=== PATIENT | male | born 1945 | race Caucasian/White ===

== ENCOUNTER 2017-07-30 10:29 | Inpatient (IN) | payer OTHER, MEDICARE ==
[2017-07-30] MEDS ORDERED: NITROGLYCERIN OINT 1 INCH/GM PACKET TOPICAL STA (10:49)
[2017-07-30] MEDS ORDERED: ASPIRIN 81 MG PO STA (10:49)
--- NOTE | 2017-07-30 10:53 | ED ---
General Adult HPI - General Chief complaint: Chest Pain Stated complaint: Chest pain Time Seen by Provider: 07/30/17 10:30 Source: patient, RN notes reviewed Mode of arrival: wheelchair Limitations: no limitations - History of Present Illness Initial comments: This is a 71-year-old male who presents emergency Department with a family history significant for cardiac disease his father at 50 from heart attack. Patient states since having chest pain. Patient states it started on on the left side but on Sunday was in the right lower chest area and radiates up to his neck on the right. Patient states that pain persists today. Patient states must be getting a little worse because he came to the emergency department today. Patient states he has no shortness of breath or difficulty breathing. Patient denied any diaphoretic episodes. Patient denies any nausea vomiting. Patient denies any abdominal pain. Patient denied any palpitations. Patient denies any lightheadedness dizziness or near syncopal episode. Patient denies any calf pain but he has noted some swelling in the legs over the last few months. Patient denies any recent fever chills or cough. Patient states sometimes he takes a deep breath it seems like it makes the pain worse but is not consistent - Related Data Home Medications Medication Instructions Recorded Confirmed Naproxen Sodium [Aleve] 220 mg PO DAILY PRN 07/30/17 07/30/17 Allergies Allergy/AdvReac Type Severity Reaction Status Date / Time No Known Allergies Allergy Verified 07/30/17 11:08 Review of Systems ROS Statement: Those systems with pertinent positive or pertinent negative responses have been documented in the HPI. ROS Other: All systems not noted in ROS Statement are negative. Past Medical History Past Medical History: No Reported History History of Any Multi-Drug Resistant Organisms: None Reported Past Surgical History: Hernia Repair Past Psychological History: No Psychological Hx Reported Smoking Status: Never smoker Past Alcohol Use History: None Reported Past Drug Use History: None Reported General Exam - General Exam Comments Initial Comments: GENERAL: Patient is well-developed and well-nourished. Patient is nontoxic and well- hydrated and is in mild distress. ENT: Neck is soft and supple. No significant lymphadenopathy is noted. Oropharynx is clear. Moist mucous membranes. Neck has full range of motion without eliciting any pain. EYES: The sclera were anicteric and conjunctiva were pink and moist. Extraocular movements were intact and pupils were equal round and reactive to light. Eyelids were unremarkable. PULMONARY: Unlabored respirations. Good breath sounds bilaterally. No audible rales rhonchi or wheezing was noted. CARDIOVASCULAR: There is a regular rate and rhythm without any murmurs gallops or rubs. ABDOMEN: Soft and nontender with normal bowel sounds. No palpable organomegaly was noted. There is no palpable pulsatile mass. SKIN: Skin is clear with no lesions or rashes and otherwise unremarkable. NEUROLOGIC: Patient is alert and oriented x3. Cranial nerves II through XII are grossly intact. Motor and sensory are also intact. Normal speech, volume and content. Symmetrical smile. MUSCULOSKELETAL: Normal extremities with adequate strength and full range of motion. 1+ edema bilaterally LYMPHATICS: No significant lymphadenopathy is noted PSYCHIATRIC: Normal psychiatric evaluation. Limitations: no limitations Course Vital Signs 07/30/17 07/30/17 07/30/17 10:31 10:59 11:50 Temperature 97.9 F Pulse Rate 95 91 Pulse Rate [ 93 Director Drug Safety ] Respiratory 18 20 Rate Blood Pressure 157/86 129/77 O2 Sat by Pulse 93 L 94 L Oximetry 07/30/17 13:00 Temperature Pulse Rate 85 Pulse Rate [ Director Drug Safety ] Respiratory 19 Rate Blood Pressure 129/80 O2 Sat by Pulse 94 L Oximetry Medical Decision Making - Medical Decision Making EKG shows a sinus rhythm at a rate of 92 bpm [place] interval is 170 QRS is 134 QT interval 390 QTC is 482. Patient's EKG shows no ST segment elevation there is no ST segment depression patient does have a right bundle branch block. Computed tomography scan shows a pulmonary embolism. I started the patient on heparin. I spoke with Dr. Bowman he agreed to admit the patient admitted the patient continued heparin on the floor. - Lab Data Result diagrams: 07/30/17 10:54 07/30/17 10:54 Lab Results 07/30/17 07/30/17 07/30/17 Range/Units 10:54 10:54 10:54 WBC 7.9 (3.8-10.6) k/uL RBC 4.98 (4.30-5.90) m/uL Hgb 15.0 (13.0-17.5) gm/dL Hct 43.9 (39.0-53.0) % MCV 88.1 (80.0-100.0) fL MCH 30.2 (25.0-35.0) pg MCHC 34.2 (31.0-37.0) g/dL RDW 13.1 (11.5-15.5) % Plt Count 166 (150-450) k/uL Neutrophils % 69 % Lymphocytes % 20 % Monocytes % 7 % Eosinophils % 2 % Basophils % 0 % Neutrophils # 5.5 (1.3-7.7) k/uL Lymphocytes # 1.6 (1.0-4.8) k/uL Monocytes # 0.6 (0-1.0) k/uL Eosinophils # 0.1 (0-0.7) k/uL Basophils # 0.0 (0-0.2) k/uL PT (9.0-12.0) sec INR (<1.2) APTT (22.0-30.0) sec D-Dimer (<0.60) mg/L FEU Sodium 140 (137-145) mmol/L Potassium 4.1 (3.5-5.1) mmol/L Chloride 102 (98-107) mmol/L Carbon Dioxide 26 (22-30) mmol/L Anion Gap 12 mmol/L BUN 14 (9-20) mg/dL Creatinine 0.83 (0.66-1.25) mg/dL Est GFR (CKD-EPI)AfAm >90 (>60 ml/min/1.73 sqM) Est GFR (CKD-EPI)NonAf 90 (>60 ml/min/1.73 sqM) Glucose 128 H (74-99) mg/dL Calcium 9.1 (8.4-10.2) mg/dL Magnesium 1.7 (1.6-2.3) mg/dL Total Bilirubin 0.8 (0.2-1.3) mg/dL AST 19 (17-59) U/L ALT 22 (21-72) U/L Alkaline Phosphatase 86 (38-126) U/L Total Creatine Kinase 42 L (55-170) U/L CK-MB (CK-2) 0.7 (0.0-2.4) ng/mL CK-MB (CK-2) Rel Index 1.7 Troponin I <0.012 (0.000-0.034) ng/mL NT-Pro-B Natriuret Pep pg/mL Total Protein 7.5 (6.3-8.2) g/dL Albumin 4.1 (3.5-5.0) g/dL 07/30/17 07/30/17 Range/Units 10:54 10:54 WBC (3.8-10.6) k/uL RBC (4.30-5.90) m/uL Hgb (13.0-17.5) gm/dL Hct (39.0-53.0) % MCV (80.0-100.0) fL MCH (25.0-35.0) pg MCHC (31.0-37.0) g/dL RDW (11.5-15.5) % Plt Count (150-450) k/uL Neutrophils % % Lymphocytes % % Monocytes % % Eosinophils % % Basophils % % Neutrophils # (1.3-7.7) k/uL Lymphocytes # (1.0-4.8) k/uL Monocytes # (0-1.0) k/uL Eosinophils # (0-0.7) k/uL Basophils # (0-0.2) k/uL PT 9.9 (9.0-12.0) sec INR 1.0 (<1.2) APTT 24.3 (22.0-30.0) sec D-Dimer 1.56 H (<0.60) mg/L FEU Sodium (137-145) mmol/L Potassium (3.5-5.1) mmol/L Chloride (98-107) mmol/L Carbon Dioxide (22-30) mmol/L Anion Gap mmol/L BUN (9-20) mg/dL Creatinine (0.66-1.25) mg/dL Est GFR (CKD-EPI)AfAm (>60 ml/min/1.73 sqM) Est GFR (CKD-EPI)NonAf (>60 ml/min/1.73 sqM) Glucose (74-99) mg/dL Calcium (8.4-10.2) mg/dL Magnesium (1.6-2.3) mg/dL Total Bilirubin (0.2-1.3) mg/dL AST (17-59) U/L ALT (21-72) U/L Alkaline Phosphatase (38-126) U/L Total Creatine Kinase (55-170) U/L CK-MB (CK-2) (0.0-2.4) ng/mL CK-MB (CK-2) Rel Index Troponin I (0.000-0.034) ng/mL NT-Pro-B Natriuret Pep 92 pg/mL Total Protein (6.3-8.2) g/dL Albumin (3.5-5.0) g/dL Critical Care Time Critical Care Time: Yes Total Critical Care Time: 35 Disposition Clinical Impression: Pulmonary embolism Disposition: ADMITTED IP TO THIS HOSP Referrals: [facility] [Primary Care Provider] - 1-2 days Time of Disposition: 14:12
[2017-07-30 11:08] LABS: Basophils % (A) 0 %; Eosinophils # (A) 0.1 k/uL (0-0.7); Eosinophils % (A) 2 %; HCT 43.9 % (39.0-53.0); Lymphocytes # (A) 1.6 k/uL (1.0-4.8); Lymphocytes % (A) 20 %; MCH 30.2 pg (25.0-35.0); MCHC 34.2 g/dL (31.0-37.0); MCV 88.1 fL (80.0-100.0); Mean Platelet Volume 6.9; Monocytes # (A) 0.6 k/uL (0-1.0); Monocytes % (A) 7 %; Neutrophils # (A) 5.5 k/uL (1.3-7.7); Neutrophils % (A) 69 %; Platelet Count 166 k/uL (150-450); RBC 4.98 m/uL (4.30-5.90); RDW 13.1 % (11.5-15.5); WBC 7.9 k/uL (3.8-10.6)
[2017-07-30 11:21] LABS: ALT 22 U/L (21-72); AST 19 U/L (17-59); Albumin 4.1 g/dL (3.5-5.0); Alkaline Phosphatase 86 U/L (38-126); Anion Gap 12 mmol/L; Blood Urea Nitrogen 14 mg/dL (9-20); Calcium 9.1 mg/dL (8.4-10.2); Carbon Dioxide 26 mmol/L (22-30); Chloride 102 mmol/L (98-107); Glucose 128 mg/dL (74-99); Magnesium 1.7 mg/dL (1.6-2.3); Potassium 4.1 mmol/L (3.5-5.1); Sodium 140 mmol/L (137-145); Total Bilirubin 0.8 mg/dL (0.2-1.3); Total Protein 7.5 g/dL (6.3-8.2)
--- NOTE | 2017-07-30 11:30 | XR ---
EXAMINATION TYPE: XR chest 2V DATE OF EXAM: 07/30/2017 COMPARISON: 10/10/2012 TECHNIQUE: PA and lateral views submitted. HISTORY: Chest pain FINDINGS: Bilateral pleural effusion and pleural thickening. Basilar consolidation. Heart size normal. No pneum othorax or overt failure. Hypertrophic and degenerative change of the spine. IMPRESSION: 1. Bilateral infiltrate and pleural effusion correlate clinically. 2. Chronic Pleural-based thickening appears stable.
[2017-07-30 11:32] LABS: Creatine Kinase 42 U/L (55-170)
[2017-07-30 11:45] LABS: Creatine Kinase MB 0.7 ng/mL (0.0-2.4); Troponin I <0.012 ng/mL (0.000-0.034)
[2017-07-30 11:55] LABS: D-Dimer 1.56 mg/L FEU (<0.60)
[2017-07-30 12:03] LABS: Prothrombin Time 9.9 sec (9.0-12.0)
[2017-07-30 12:05] LABS: Partial Thromboplastin Time 24.3 sec (22.0-30.0)
[2017-07-30] MEDS ORDERED: RX INFO: IV CONTRAST WAS GIVEN 1 EACH MISC MISCELLANE PRN (12:23)
[2017-07-30] MEDS ORDERED: HEPARIN SODIUM,PORCINE 10,000 UNIT/ML 1 ML VIAL IV ONE (13:51)
--- NOTE | 2017-07-30 13:59 | CT ---
EXAMINATION TYPE: CT chest angio for PE DATE OF EXAM: 07/30/2017 COMPARISON: NONE HISTORY: Chest pain CT DLP: 678.7 mGycm Automated exposure control for dose reduction was used. CONTRAST: CT Chest for pulmonary embolism performed with with IV Contrast, patient injected with 100 mL of Omni paque 350. FINDINGS: LUNGS: The lungs are remarkable for some basilar atelectatic changes, small pleural effusion present on the right, correlate to exclude pneumonia. Some possible scarring, inflammatory change present wit hin the right middle lobe. MEDIASTINUM: There is satisfactory enhancement of the pulmonary artery and its branches. There are fi lling defects present within segmental branches to the right lower lobe, right middle and left upper lobes compatible with pulmonary emboli. No pericardial effusion is seen. AORTA: No additional significant abnormality is seen. There are coronary artery calcifications prese nt. OTHER: Nonobstructive calculus present within the upper pole of the left kidney measures approximate ly 4 to 5 mm. There is a small hiatal hernia present. Cystic focus present in the exophytic location at the level of the upper pole left kidney laterally measures 8.6 cm and shows fluid attenuation. IMPRESSION: Pulmonary emboli. Additional findings above. Report relayed telephonically to the referring clinician at the time of performance of the exam. Additional findings above.
[2017-07-30] MEDS ORDERED: HEPARIN SOD,PORK IN 0.45% NACL 25,000 UNIT in 0.45% NACL 1 500ML.BAG IV SCH (14:00)
[2017-07-30] MEDS ORDERED: SODIUM CHLORIDE 0.9% 1,000 ML IV ONE (14:12)
[2017-07-30 14:16] VITALS: RESP 18
--- NOTE | 2017-07-30 15:50 | US ---
EXAMINATION TYPE: US venous doppler duplex LE BI DATE OF EXAM: 07/30/2017 3:16 PM COMPARISON: NONE CLINICAL HISTORY: Pain. PE's today, no pain or swelling in legs SIDE PERFORMED: Bilateral TECHNIQUE: The lower extremity deep venous system is examined utilizing real time linear array sonog jass with graded compression, doppler sonography and color-flow sonography. VESSELS IMAGED: External Iliac Vein (EIV) Common Femoral Vein Deep Femoral Vein Greater Saphenous Vein * Femoral Vein Popliteal Vein Small Saphenous Vein * Proximal Calf Veins (* superficial vessels) Grayscale, color doppler, spectral doppler imaging performed of the deep veins of the lower extremiti es. There is normal flow, compressibility, vascular waveforms. Right Leg: Appears negative for DVT Left Leg: Appears negative for DVT IMPRESSION: No sonographic evidence of deep venous thrombosis within the bilateral lower extremities .
[2017-07-30] MEDS ORDERED: HYDROcodone/APAP 7.5-325MG 1 EACH TAB PO PRN (17:15)
[2017-07-30] MEDS ORDERED: ACETAMINOPHEN TAB 325 MG TAB PO PRN (17:15)
[2017-07-30] MEDS ORDERED: traMADol 50 MG TAB PO PRN (17:15)
--- NOTE | 2017-07-30 17:21 | P.HPIM ---
History of Present Illness 71-year-old man came in with complaints of chest pain which started last mostly right-sided the chest pleuritic in nature patient was comparing multiple areas of chest pain. Chest pain is about 3-4/10 in severity nonradiating associated with cough sneezing and the deep breathing. Patient denied any fever chills. Patient is found to have pulmonary embolism in the right subsegmental branches. Bilateral lower limb Doppler is negative for DVT. Patient was also comparing of associated shortness of breath complaining of dry cough as well. Denied any recent surgery recent travel history of blood clots in the family. Patient never had any age-appropriate cancer screening denied any recent weight loss. Patient is obese. Review of Systems REVIEW OF SYSTEMS: CONSTITUTIONAL: No fever, no malaise, no fatigue. HEENT: No recent visual problems or hearing problems. Denied any sore throat. CARDIOVASCULAR: No orthopnea, PND, no palpitations, no syncope. PULMONARY: As mentioned in HPI GASTROINTESTINAL: No diarrhea, no nausea, no vomiting, no abdominal pain. Normoactive bowel sounds. NEUROLOGICAL: No headaches, no weakness, no numbness. HEMATOLOGICAL: Denies any bleeding or petechiae. GENITOURINARY: Denies any burning micturition, frequency, or urgency. MUSCULOSKELETAL/RHEUMATOLOGICAL: Denies any joint pain, swelling, or any muscle pain. ENDOCRINE: Denies any polyuria or polydipsia. The rest of the 14-point review of systems is negative. Past Medical History Past Medical History: No Reported History History of Any Multi-Drug Resistant Organisms: None Reported Past Surgical History: Hernia Repair Past Psychological History: No Psychological Hx Reported Smoking Status: Never smoker Past Alcohol Use History: None Reported Past Drug Use History: None Reported Medications and Allergies Home Medications Medication Instructions Recorded Confirmed Type Naproxen Sodium [Aleve] 220 mg PO DAILY PRN 07/30/17 07/30/17 History Allergies Allergy/AdvReac Type Severity Reaction Status Date / Time No Known Allergies Allergy Verified 07/30/17 11:08 Physical Exam Vitals: Vital Signs Temp Pulse Pulse Resp BP Pulse Ox 07/30/17 16:08 98.3 F 87 18 122/82 96 07/30/17 14:15 90 18 119/76 95 07/30/17 13:00 85 19 129/80 94 L 07/30/17 11:50 91 20 129/77 94 L 07/30/17 10:59 93 07/30/17 10:31 97.9 F 95 18 157/86 93 L Intake and Output 07/30/17 07/30/17 07/30/17 06:59 14:59 22:59 Intake Total 200 Balance 200 Intake: Amount of Fluid Infused ( 200 ml) Other: Weight 136.078 kg Results CBC & Chem 7: 07/30/17 10:54 07/30/17 10:54 Labs: Abnormal Lab Results - Last 24 Hours (Table) 07/30/17 07/30/17 07/30/17 Range/Units 10:54 10:54 10:54 D-Dimer 1.56 H (<0.60) mg/L FEU Glucose 128 H (74-99) mg/dL Total Creatine Kinase 42 L (55-170) U/L Assessment and Plan Plan: -Chest pain: Related to pulmonary embolism. Patient's vitals are stable at this time patient will be switched to oral anticoagulation. Heparin will be discontinued patient appears to have unprecipitated DVT. Many lifelong anticoagulation. Age appropriate cancer screening was advised to the patient. -Obesity: Counseling was provided patient will benefit from sleep study. -Bilateral pleural effusions: Secondary to pulmonary embolism my suspicion is low for pneumonia.
[2017-07-30 17:25] VITALS: BMI 37.5
[2017-07-30] MEDS: APIXABAN 5 MG TAB PO SCH (18:23)
[2017-07-31] MEDS: APIXABAN 5 MG TAB PO SCH (07:58)
[2017-07-31 12:13] VITALS: BP 183/86; PULSE 89; TEMP 98.8
--- NOTE | 2017-07-31 13:36 | P.DS ---
Providers Date of admission: 07/30/17 14:12 Attending physician: Sinai Bowman Primary care physician: [facility] Course: 71-year-old man came in with complaints of chest pain which started last mostly right-sided the chest pleuritic in nature patient was comparing multiple areas of chest pain. Chest pain is about 3-4/10 in severity nonradiating associated with cough sneezing and the deep breathing. Patient denied any fever chills. Patient is found to have pulmonary embolism in the right subsegmental branches. Bilateral lower limb Doppler is negative for DVT. Patient was also comparing of associated shortness of breath complaining of dry cough as well. Denied any recent surgery recent travel history of blood clots in the family. Patient never had any age-appropriate cancer screening denied any recent weight loss. Patient is obese. 07/31/2017 Patient is clinically doing well this time clinically doing well vitals are stable patient will be discharged on Apaxiban if approved PHYSICAL EXAMINATION: GENERAL: The patient is alert and oriented x3, not in any acute distress. Well developed, well nourished. HEENT: Pupils are round and equally reacting to light. EOMI. No scleral icterus. No conjunctival pallor. Normocephalic, atraumatic. No pharyngeal erythema. No thyromegaly. CARDIOVASCULAR: S1 and S2 present. No murmurs, rubs, or gallops. PULMONARY: Chest is clear to auscultation, no wheezing or crackles. ABDOMEN: Soft, nontender, nondistended, normoactive bowel sounds. No palpable organomegaly. MUSCULOSKELETAL: No joint swelling or deformity. EXTREMITIES: No cyanosis, clubbing, or pedal edema. NEUROLOGICAL: Gross neurological examination did not reveal any focal deficits. SKIN: No rashes. Assessment and Plan Plan: -Chest pain: Related to pulmonary embolism. -Obesity: Counseling was provided patient will benefit from sleep study. -Bilateral pleural effusions: Secondary to pulmonary embolism my suspicion is low for pneumonia. Plan - Discharge Summary Discharge Rx Participant: No New Discharge Prescriptions: New Apixaban [Eliquis] See Taper PO BID #30 tab No Action Naproxen Sodium [Aleve] 220 mg PO DAILY PRN PRN Reason: Pain Discharge Medication List Naproxen Sodium [Aleve] 220 mg PO DAILY PRN 07/30/17 [History] Apixaban [Eliquis] See Taper PO BID #30 tab 07/31/17 [Rx] Follow up Appointment(s)/Referral(s): [facility],Clinic [Primary Care Provider] - 08/09/17 ([phone] Office will call with appointment time.) Patient Instructions/Handouts: Pulmonary Embolism (DC), Safe Use of Anticoagulants (DC) Activity/Diet/Wound Care/Special Instructions: Pt has first 30 days of Eliquis filled in [facility] pharmacy, prescription faxed to [facility] for follow up coverage. Discharge Disposition: HOME SELF-CARE
[2017-08-06] MEDS ORDERED: APIXABAN 5 MG TAB PO SCH (21:00)
== END 2017-07-31 15:46 | disposition home or self-care (01) | DRG 176 ==
LOC: EC 10:29 → 6SEL 14:12
PROVIDERS: ADMIT Internal Medicine; ATTEND Internal Medicine
DX: I26.99 Other pulmonary embolism without acute cor pulmonale (principal); J90 Pleural effusion, not elsewhere classified; E66.9 Obesity, unspecified; Z68.36 Body mass index [BMI] 36.0-36.9, adult; Z71.3 Dietary counseling and surveillance; Z82.49 Family history of ischemic heart disease and other diseases of the circulatory system
CPT/HCPCS: 36415; 71046; 71275; 80053; 82550; 82553; 83735; 83880; 84484; 85025; 85379; 85610; 85730; 93005; 93970; 96365; 96366; 96376; 99291

== ENCOUNTER 2020-12-30 13:12 | Inpatient (IN) | payer OTHER, MEDICARE ==
[2020-12-30] MEDS ORDERED: SODIUM CHLORIDE 0.9% 1,000 ML IV STA (15:13)
[2020-12-30] MEDS ORDERED: KETOROLAC 15 MG/ML 1 ML VIAL IVP STA (15:13)
[2020-12-30 15:24] LABS: ALT 13 U/L (4-49); AST 21 U/L (17-59); African American GFR (CKD) >90 (>60 ml/min/1.73 sqM); Albumin 3.9 g/dL (3.5-5.0); Alkaline Phosphatase 65 U/L (38-126); Anion Gap 9 mmol/L; Blood Urea Nitrogen 13 mg/dL (9-20); Carbon Dioxide 24 mmol/L (22-30); Chloride 103 mmol/L (98-107); Glucose 133 mg/dL (74-99); Non-African American GFR(CKD) 88 (>60 ml/min/1.73 sqM); Partial Thromboplastin Time 23.8 sec (22.0-30.0); Potassium 4.2 mmol/L (3.5-5.1); Prothrombin Time 10.4 sec (9.0-12.0); Sodium 136 mmol/L (137-145); Total Bilirubin 0.7 mg/dL (0.2-1.3); Total Protein 7.1 g/dL (6.3-8.2)
[2020-12-30 15:29] LABS: Appearance,Urine Cloudy (Clear); Bacteria,Urine Few /hpf; Bilirubin,Urine Negative (Negative); Blood,Urine Trace (Negative); Color,Urine Yellow; Glucose,Urine (UA) Trace (Negative); Ketones,Urine Negative (Negative); Leukocyte Esterase,Urine Large (Negative); Mucus,Urine Moderate /hpf; Nitrite,Urine Positive (Negative); PH, Urine 5.5 (5.0-8.0); Protein,Urine Trace (Negative); RBC,Urine 13 /hpf (0-5); Specific Gravity,Urine 1.019 (1.001-1.035); Squamous Epithelial Cell,Urine <1 /hpf (0-4); Urobilinogen,Urine <2.0 mg/dL (<2.0); WBC,Urine >182 /hpf (0-5)
[2020-12-30 15:39] LABS: Basophils % (A) 0 %; Eosinophils # (A) 0.1 k/uL (0-0.7); Eosinophils % (A) 1 %; HCT 41.6 % (39.0-53.0); HGB 14.2 gm/dL (13.0-17.5); Lymphocytes # (A) 1.2 k/uL (1.0-4.8); Lymphocytes % (A) 16 %; MCH 32.3 pg (25.0-35.0); MCHC 34.1 g/dL (31.0-37.0); MCV 94.8 fL (80.0-100.0); Mean Platelet Volume 6.8; Monocytes # (A) 0.4 k/uL (0-1.0); Monocytes % (A) 6 %; Neutrophils # (A) 5.7 k/uL (1.3-7.7); Neutrophils % (A) 75 %; Platelet Count 172 k/uL (150-450); RBC 4.39 m/uL (4.30-5.90); WBC 7.5 k/uL (3.8-10.6)
--- NOTE | 2020-12-30 15:50 | XR ---
EXAMINATION TYPE: XR chest 2V DATE OF EXAM: 12/30/2020 COMPARISON: 07/30/2017 HISTORY: Shortness of breath TECHNIQUE: Frontal and lateral views of the chest are obtained. FINDINGS: Scattered senescent parenchymal changes noted. Hyperinflation compatible with COPD. No evidence for infiltrate. No evidence for atelectasis. Heart size is stable. Mediastinal structures are stable and grossly unremarkable. No evidence for hilar prominence. Degenerative changes dorsal spine. IMPRESSION: 1. No evidence for acute pulmonary disease.
--- NOTE | 2020-12-30 16:01 | ED ---
General Adult HPI - General Chief complaint: Chest Pain Stated complaint: Chest pain Time Seen by Provider: 12/30/20 15:03 Source: patient Mode of arrival: wheelchair Limitations: no limitations - History of Present Illness Initial comments: Patient is a 75-year-old male, history of diabetes, presenting to the emergency Department with complaints of left sided flank pain that started yesterday while he was watching TV. He states the pain has been pretty consistent although it varies in intensity. Currently he rates it a 6/10. He states it does come around to towards the front of his left abdomen. He states this morning he felt like it was coming up into his chest slightly. The pain does increase with movement. Right now, he denies any chest pain, no shortness of breath, he denies any abdominal pain, no nausea or vomiting. He denies any dysuria. He states he did go to the [place] doctor this morning, they did a a few x-rays and also did his urine, he was started on Flomax, tramadol, Bactrim for a possible kidney stone and UTI. He did take one dose of each of these medications this morning prior to arrival. He states the pain has been continuous and he came in for further evaluation. He denies history of cardiac events. He does have a history of kidney stones in the past, this does feel slightly similar. He denies any fevers or chills. He has no further complaints. His vital signs are stable upon arrival. - Related Data Home Medications Medication Instructions Recorded Confirmed Aspirin EC [Ecotrin Low Dose] 81 mg PO DAILY 12/30/20 12/30/20 Cholecalciferol [Vitamin D3 (25 25 mcg PO DAILY 12/30/20 12/30/20 Mcg = 1000 Iu)] Sulfamethox-Tmp 800-160Mg [Bactrim 1 tab PO Q12HR 12/30/20 12/30/20 DS 800-160 mg] Tamsulosin [Flomax] 0.4 mg PO DAILY 12/30/20 12/30/20 amLODIPine [Norvasc] 5 mg PO HS 12/30/20 12/30/20 traMADol HCl [Ultram] 50 mg PO TID PRN 12/30/20 12/30/20 Allergies Allergy/AdvReac Type Severity Reaction Status Date / Time No Known Allergies Allergy Verified 12/30/20 16:28 Review of Systems ROS Statement: Those systems with pertinent positive or pertinent negative responses have been documented in the HPI. ROS Other: All systems not noted in ROS Statement are negative. Past Medical History Past Medical History: Diabetes Mellitus Additional Past Medical History / Comment(s): Bilat PE diagnosed 07/30/2017 History of Any Multi-Drug Resistant Organisms: None Reported Past Surgical History: Hernia Repair Past Anesthesia/Blood Transfusion Reactions: No Reported Reaction Past Psychological History: No Psychological Hx Reported Smoking Status: Never smoker Past Alcohol Use History: None Reported Past Drug Use History: None Reported - Past Family History Father Family Medical History: Coronary Artery Disease (CAD), Myocardial Infarction ([place]) Brother(s) History Unknown: Yes Family Medical History: Coronary Artery Disease (CAD), Myocardial Infarction ([place]) General Exam - General Exam Comments Initial Comments: GENERAL: Patient is well-developed and well-nourished. Patient is nontoxic and in mild distress. HEAD: Atraumatic, normocephalic. EYES: Pupils equal round and reactive to light, extraocular movements intact, sclera anicteric, conjunctiva are normal. Eyelids were unremarkable. ENT: TMs normal, nares patent, oropharynx clear without exudates. Moist mucous membranes. NECK: Normal range of motion, supple without lymphadenopathy or JVD. LUNGS: Unlabored respirations. Breath sounds clear to auscultation bilaterally and equal. No wheezes rales or rhonchi. HEART: Regular rate and rhythm without murmurs, rubs or gallops. ABDOMEN: Soft, nontender, normoactive bowel sounds. No guarding, no rebound. No masses appreciated. Mild left flank pain with percussion. : Deferred MUSCULOSKELETAL: Normal extremities with adequate strength and normal range of motion, no pitting or edema. No clubbing or cyanosis. NEUROLOGICAL: Patient is alert and oriented x 3. Motor and sensory are also intact. Cranial nerves II through XII grossly intact. Symmetrical smile. Normal speech, normal gait. PSYCH: Normal mood, normal affect. SKIN: Warm, Dry, normal turgor, no rashes or lesions noted. Limitations: no limitations Course Vital Signs 12/30/20 12/30/20 13:47 15:18 Temperature 99.2 F Pulse Rate 63 80 Respiratory 18 22 Rate Blood Pressure 116/78 148/86 O2 Sat by Pulse 94 L 95 Oximetry - Reevaluation(s) Reevaluation #1: 12/30/20 17:02 Urinalysis resulted at 1547, positive nitrates, UTI, urine cultures pending. Scars case with urology, antibiotics ordered at 1652. Patient will be admitted. EKG Findings - EKG Comments: EKG Findings:: Sinus rhythm with marked sinus arrhythmia, nonspecific intraventricular block, no signs of acute ST segment elevation. Ventricular rate 90, interval 172, QTC 400. Similar to previous on 07/30/2017. Medical Decision Making - Medical Decision Making Patient is a 75-year-old male presenting with left flank pain started yesterday. He does admit to some radiation towards left abdomen, this morning he thought it was radiating towards his left chest. Currently has no chest pain or shortness of breath. His vitals are stable. [place] doctor this morning who did a chest x-ray and abdominal x-ray, was concerned for possible kidney stone and UTI, started him on tramadol, Flomax, Bactrim, he took one tablet of each of these this morning. Patient's labs show a normal white count, stable kidney function, troponin is negative. Urine is positive for nitrates, many wbc's and clumps, bacteria, urine culture is pending. Patient has a 8.3 mm calculus in the left upper pole, he also has a large 2.7 cm urinary bladder calculus as well. I did discuss his case with urology, they did agree to consult on the patient. Patient will be admitted under Dr. Mathews with urology on consult. Patient will be started on 2 g of Rocephin and will be nothing by mouth after midnight. Patient is agreeable to this. Case discussed with Dr. Strickland. - Lab Data Result diagrams: 12/30/20 14:49 12/30/20 14:49 Lab Results 12/30/20 12/30/20 12/30/20 Range/Units 14:49 14:49 14:49 WBC 7.5 (3.8-10.6) k/uL RBC 4.39 (4.30-5.90) m/uL Hgb 14.2 (13.0-17.5) gm/dL Hct 41.6 (39.0-53.0) % MCV 94.8 (80.0-100.0) fL MCH 32.3 (25.0-35.0) pg MCHC 34.1 (31.0-37.0) g/dL RDW 14.0 (11.5-15.5) % Plt Count 172 (150-450) k/uL MPV 6.8 Neutrophils % 75 % Lymphocytes % 16 % Monocytes % 6 % Eosinophils % 1 % Basophils % 0 % Neutrophils # 5.7 (1.3-7.7) k/uL Lymphocytes # 1.2 (1.0-4.8) k/uL Monocytes # 0.4 (0-1.0) k/uL Eosinophils # 0.1 (0-0.7) k/uL Basophils # 0.0 (0-0.2) k/uL PT 10.4 (9.0-12.0) sec INR 1.0 (<1.2) APTT 23.8 (22.0-30.0) sec Sodium 136 L (137-145) mmol/L Potassium 4.2 (3.5-5.1) mmol/L Chloride 103 (98-107) mmol/L Carbon Dioxide 24 (22-30) mmol/L Anion Gap 9 mmol/L BUN 13 (9-20) mg/dL Creatinine 0.81 (0.66-1.25) mg/dL Est GFR (CKD-EPI)AfAm >90 (>60 ml/min/1.73 sqM) Est GFR (CKD-EPI)NonAf 88 (>60 ml/min/1.73 sqM) Glucose 133 H (74-99) mg/dL Calcium 9.0 (8.4-10.2) mg/dL Total Bilirubin 0.7 (0.2-1.3) mg/dL AST 21 (17-59) U/L ALT 13 (4-49) U/L Alkaline Phosphatase 65 (38-126) U/L Troponin I (0.000-0.034) ng/mL Total Protein 7.1 (6.3-8.2) g/dL Albumin 3.9 (3.5-5.0) g/dL Urine Color Urine Appearance (Clear) Urine pH (5.0-8.0) Ur Specific Sherrill (1.001-1.035) Urine Protein (Negative) Urine Glucose (UA) (Negative) Urine Ketones (Negative) Urine Blood (Negative) Urine Nitrite (Negative) Urine Bilirubin (Negative) Urine Urobilinogen (<2.0) mg/dL Ur Leukocyte Esterase (Negative) Urine RBC (0-5) /hpf Urine WBC (0-5) /hpf Urine WBC Clumps (None) /hpf Ur Squamous Epith Cells (0-4) /hpf Urine Bacteria (None) /hpf Urine Mucus (None) /hpf 12/30/20 12/30/20 Range/Units 14:49 15:17 WBC (3.8-10.6) k/uL RBC (4.30-5.90) m/uL Hgb (13.0-17.5) gm/dL Hct (39.0-53.0) % MCV (80.0-100.0) fL MCH (25.0-35.0) pg MCHC (31.0-37.0) g/dL RDW (11.5-15.5) % Plt Count (150-450) k/uL MPV Neutrophils % % Lymphocytes % % Monocytes % % Eosinophils % % Basophils % % Neutrophils # (1.3-7.7) k/uL Lymphocytes # (1.0-4.8) k/uL Monocytes # (0-1.0) k/uL Eosinophils # (0-0.7) k/uL Basophils # (0-0.2) k/uL PT (9.0-12.0) sec INR (<1.2) APTT (22.0-30.0) sec Sodium (137-145) mmol/L Potassium (3.5-5.1) mmol/L Chloride (98-107) mmol/L Carbon Dioxide (22-30) mmol/L Anion Gap mmol/L BUN (9-20) mg/dL Creatinine (0.66-1.25) mg/dL Est GFR (CKD-EPI)AfAm (>60 ml/min/1.73 sqM) Est GFR (CKD-EPI)NonAf (>60 ml/min/1.73 sqM) Glucose (74-99) mg/dL Calcium (8.4-10.2) mg/dL Total Bilirubin (0.2-1.3) mg/dL AST (17-59) U/L ALT (4-49) U/L Alkaline Phosphatase (38-126) U/L Troponin I <0.012 (0.000-0.034) ng/mL Total Protein (6.3-8.2) g/dL Albumin (3.5-5.0) g/dL Urine Color Yellow Urine Appearance Cloudy (Clear) Urine pH 5.5 (5.0-8.0) Ur Specific Sherrill 1.019 (1.001-1.035) Urine Protein Trace H (Negative) Urine Glucose (UA) Trace H (Negative) Urine Ketones Negative (Negative) Urine Blood Trace H (Negative) Urine Nitrite Positive (Negative) Urine Bilirubin Negative (Negative) Urine Urobilinogen <2.0 (<2.0) mg/dL Ur Leukocyte Esterase Large H (Negative) Urine RBC 13 H (0-5) /hpf Urine WBC >182 H (0-5) /hpf Urine WBC Clumps Few H (None) /hpf Ur Squamous Epith Cells <1 (0-4) /hpf Urine Bacteria Few H (None) /hpf Urine Mucus Moderate H (None) /hpf Disposition Clinical Impression: UTI (urinary tract infection), Left renal stone, Urinary bladder calculus Disposition: ADMITTED IP TO THIS HOSP Condition: Stable Referrals: [facility],Clinic [Primary Care Provider] - 1-2 days Decision Date: 12/30/20 Decision Time: 17:03
--- NOTE | 2020-12-30 16:07 | CT ---
EXAMINATION TYPE: CT abdomen pelvis wo con DATE OF EXAM: 12/30/2020 COMPARISON: None HISTORY: Left flank pain. CT DLP: 1456.4 mGycm Examination of the solid and hollow viscera is limited given the lack of contrast. FINDINGS: LUNG BASES: No evidence for nodule. No evidence for infiltrate. LIVER/GB: The gallbladder is unremarkable. No space-occupying hepatic lesion. PANCREAS: No pancreatic mass identified. No inflammatory process seen. SPLEEN: No evidence for splenomegaly. No intrasplenic lesions seen. ADRENALS: No adrenal nodules identified. No evidence for thickening. KIDNEYS: No evidence for renal mass. Nonobstructing calculus upper pole left kidney measuring approxi mately 8.3 millimeters. No hydronephrosis. 2.7 cm urinary bladder calculus identified. Urinary bladde r wall thickening may reflect chronic cystitis. BOWEL: Appendix has a normal appearance. No evidence of bowel obstruction. No inflammatory process. Lymph nodes: No evidence for adenopathy greater than 1 cm. Abdominal aorta: Atheromatous changes seen. No evidence for aneurysm. Genital organs: No significant abnormality. Other: Fat-containing umbilical hernia. IMPRESSION: 1. Nonobstructing calculus upper pole left kidney. 2. Large urinary bladder calculus with a urinary bladder wall thickening which may reflect a degree o f underlying cystitis.
[2020-12-30] MEDS ORDERED: ONDANSETRON 4 MG/2 ML VIAL IVP PRN (17:03)
[2020-12-30] MEDS ORDERED: ACETAMINOPHEN TAB 325 MG TAB PO PRN (17:03)
[2020-12-30] MEDS ORDERED: IBUPROFEN 400 MG TAB PO PRN (17:03)
[2020-12-30] MEDS ORDERED: NALOXONE 0.4 MG/ML 1 ML VIAL IV PRN (17:03)
[2020-12-30] MEDS ORDERED: KETOROLAC 15 MG/ML 1 ML VIAL IVP PRN (17:03)
[2020-12-30] MEDS ORDERED: MORPHINE SULFATE 4 MG/ML SYRINGE IV PRN (17:03)
[2020-12-30] MEDS: SODIUM CHLORIDE 0.9% 1,000 ML IV SCH (17:18)
[2020-12-30] MEDS ORDERED: traMADol 50 MG TAB PO PRN (20:00)
--- NOTE | 2020-12-30 21:02 | HP ---
HISTORY AND PHYSICAL DATE OF SERVICE: 12/30/2020. CHIEF COMPLAINT: Chest pain. HISTORY OF PRESENT ILLNESS: This 75-year-old gentleman with past medical history of diabetes, bilateral pulmonary embolism, being followed by Dr. Ratliff in the [facility] in the outpatient setting, was complaining of left-sided lower chest pain and flank pain since yesterday while watching TV. The pain was severe 6/10 in intensity. Subsequently, the patient also had pain in the anterior part of chest, which was some pressing type of pain. Otherwise, the patient is evaluated by NH and was noted to have kidney stones and UTI. The pain has been continuous and the patient came to [facility] and admitted for evaluation treatment. There is no history of fever, rigors, chills at this time. The evaluation showed normal CBC and sodium is 136. UA showed some evidence of UTI and the patient also had a chest x-ray which was reviewed personally, showed no evidence of any acute pathology. Abdominal and pelvis CAT scan was also done which showed nonobstructing calculus in the upper pole of the left kidney and large urinary bladder calculus also noted with some amount of underlying cystitis also. There is no history of fever, rigors, chills at this time. PAST MEDICAL HISTORY: Diabetes, bilateral pulmonary embolism. MEDICATIONS: Home medications are Ultram, Norvasc, Flomax, Bactrim, vitamin D3, Ecotrin, doses noted. ALLERGIES: None. FAMILY HISTORY: History of coronary artery disease, myocardial infarction in the family. SOCIAL HISTORY: No history of smoking. No history of alcohol. REVIEW OF SYSTEMS: ENT: No diminished vision. No diminished hearing. CARDIOVASCULAR: No angina or palpitations. RESPIRATION as mentioned earlier. GI: As mentioned earlier. as mentioned earlier. NERVOUS SYSTEM: No numbness or weakness. ALLERGY/IMMUNOLOGY: No asthma or hayfever. MUSCULOSKELETAL as mentioned earlier. HEMATOLOGY/ONCOLOGY: No history of anemia. ENDOCRINE as mentioned earlier. CONSTITUTIONAL: As mentioned earlier. DERMATOLOGY: Negative. RHEUMATOLOGY: Negative. PSYCHIATRIC: As mentioned earlier. PHYSICAL EXAMINATION: Alert and oriented times three. Pulse 63, blood pressure 116/78, respiration 18, temperature 99.2, pulse ox 94% on room air. HEENT: Conjunctivae normal. NECK: No JVD. CARDIOVASCULAR: S1, S2 muffled. RESPIRATORY SYSTEM: Breath sounds diminished at the bases. Scattered rhonchi. ABDOMEN: Soft, mild diffuse tenderness. The flank otherwise soft, obese, nontender. No mass palpable. LEGS: No edema, no swelling. NERVOUS SYSTEM: Higher functions as mentioned earlier. Moves all 4 limbs. No focal motor or sensory deficits. LYMPHATICS: No lymph nodes palpable in the neck, axillae or groin. SKIN: No ulcers, no rashes and no bleeding. JOINTS: No active deforming arthropathy. LAB STUDIES: CBC within normal limits. Sodium 136. ASSESSMENT: 1. Left flank and left chest pain possible acute pyelonephritis and urinary tract infection. 2. Left upper pole nephrolithiasis and bladder stones. 3. Hyponatremia mild. 4. History of diabetes type 2. 5. History of bilateral pulmonary embolism. RECOMMENDATIONS: This 75-year-old gentleman who presented with multiple complex medical issues, we will monitor the patient closely. Continue the current medications. Continue symptomatic treatment. We will initiate broad-spectrum IV antibiotics. Obtain cultures. Urology has been consulted. I would also recommend D-dimer and if it is elevated, CT angio of the chest also. Prognosis guarded because of multiple complex medical issues. Symptomatic treatment will be provided. Home medications will be continued. A copy of dictation is being forwarded to Dr. Ratliff who is the primary physician. MMODL / IJN: [id number] /
[2020-12-30] MEDS: amLODIPine 5 MG TAB PO SCH (22:48)
--- NOTE | 2020-12-30 23:56 | CT ---
EXAMINATION TYPE: CT chest angio for PE DATE OF EXAM: 12/30/2020 COMPARISON: 07/30/2017 HISTORY: Elevated d-dimer CT DLP: 701.6 mGycm Automated exposure control for dose reduction was used. CONTRAST: Performed with IV Contrast, patient injected with 100 mL of Isovue 370. There are 3-D post processed images. There is some mild infiltrate and atelectasis left lung base. There is small left pleural effusion. There are multiple filling defects in the right pulmonary artery extending into the right lower lobe and right upper lobe. There are also a few filling defects in the left lower lobe pulmonary artery. T here are small defects also in the left upper lobe pulmonary artery. There is no mediastinal adenopathy. Thoracic aorta is intact. There are no hilar masses. The bony thorax is intact. IMPRESSION: Multiple bilateral pulmonary emboli. Emboli are essentially all new compared to old exam. Old exam sh ows a few small emboli in the right lower lobe pulmonary artery. No evidence of right heart strain. Left lower lobe pneumonia and atelectasis and pleural fluid. This exam was discussed with Jyoti at 11:53 PM.
[2020-12-31] MEDS ORDERED: HEPARIN SODIUM 1,000 UN/ML (10ML VL) IV PRN (00:23)
[2020-12-31] MEDS ORDERED: HEPARIN SODIUM 1,000 UN/ML (10ML VL) IV ONE (00:23)
[2020-12-31] MEDS: HEPARIN SOD,PORK IN 0.45% NACL 25,000 UNIT in 0.45% NACL 1 250ML.BAG IV SCH ×2 (00:41→12:24)
[2020-12-31] MEDS: SODIUM CHLORIDE 0.9% 1,000 ML IV SCH ×3 (02:30→20:20)
[2020-12-31] MEDS: ASPIRIN 81 MG PO SCH (08:21)
[2020-12-31] MEDS: CHOLECALCIFEROL 25 MCG (1000 IU) TABLET PO SCH (08:22)
[2020-12-31] MEDS: TAMSULOSIN 0.4 MG CAP.ER.24H PO SCH (08:22)
[2020-12-31 08:54] LABS: Basophils % (A) 0 %; Eosinophils # (A) 0.1 k/uL (0-0.7); Eosinophils % (A) 1 %; HCT 39.9 % (39.0-53.0); HGB 13.5 gm/dL (13.0-17.5); Lymphocytes # (A) 1.2 k/uL (1.0-4.8); Lymphocytes % (A) 15 %; MCH 31.4 pg (25.0-35.0); MCHC 33.7 g/dL (31.0-37.0); Mean Platelet Volume 7.6; Monocytes # (A) 0.5 k/uL (0-1.0); Monocytes % (A) 6 %; Neutrophils # (A) 6.1 k/uL (1.3-7.7); Neutrophils % (A) 77 %; Platelet Count 164 k/uL (150-450); RBC 4.29 m/uL (4.30-5.90); RDW 13.1 % (11.5-15.5); WBC 7.9 k/uL (3.8-10.6)
[2020-12-31 09:01] LABS: African American GFR (CKD) 76.8 (60.0-200.0); Albumin 3.5 g/dL (3.80-4.90); Albumin/Globulin Ratio 1.35 (1.60-3.17); Anion Gap 7.8 mmol/L (4.00-12.00); BUN/Creat Ratio 12.73 Ratio (12.00-20.00); Calcium 8.3 mg/dL (8.7-10.3); Carbon Dioxide 27.2 mmol/L (21.6-31.8); Globulin 2.6 g/dL (1.6-3.3); Non-African American GFR(CKD) 66.2 (60.0-200.0); Potassium 3.8 mmol/L (3.5-5.5); Total Bilirubin 0.6 mg/dL (0.3-1.2); Total Protein 6.1 g/dL (6.2-8.2)
[2020-12-31 09:13] LABS: INR 1.1 (<1.2); Prothrombin Time 11.3 sec (9.0-12.0)
[2020-12-31 09:21] LABS: Partial Thromboplastin Time 113.5 sec (22.0-30.0)
--- NOTE | 2020-12-31 11:02 | P.CRDCN ---
History of Present Illness History of present illness: HISTORY OF PRESENTING ILLNESS This is a pleasant 75-year-old male past medical history significant for pulmonary embolism and hypertension. He follows in the office with Dr. Stokes. We have been asked to see in consultation for pulmonary embolism. Flank pain and was diagnosed with an infected renal stone. Incidentally he is also complaining of some discomfort in his chest when he takes a deep breath prompting a d-dimer to be ordered which came to be elevated. His CTA of the chest revealed multiple bilateral pulmonary emboli new compared to old exam with no evidence of right heart strain and a left lower lobe pneumonia with atelectasis and pleural fluid noted. EKG reveals sinus mechanism with incomplete right bundle branch block. Chest x-rays negative for acute card iopulmonary process. Laboratory data reviewed, CBC unremarkable, d-dimer 7.35, sodium 141, potassium 3.8, creatinine 1.1, troponin negative 1. Current daily cardiac medications include amlodipine 5 mg daily and aspirin 81 mg daily. Most recent echocardiogram obtained 2019 revealed preserved LV systolic function with ejection fraction 55%, mild mitral regurgitation with mitral valve posterior l eaflet moderately thickened, mildly calcified aortic valve with no regurgitation noted. Aortic root was enlarged at 3.9 cm at that time. REVIEW OF SYSTEMS At the time of my exam: CONSTITUTIONAL: Denies fever or chills. CARDIOVASCULAR: Denies chest pain, shortness of breath, orthopnea, PND or palpi tations. RESPIRATORY: Denies cough. GASTROINTESTINAL: Denies abdominal pain, diarrhea, constipation, nausea or vomiting. MUSCULOSKELETAL: Denies myalgias. NEUROLOGIC: Denies numbness, tingling, headache or weakness. ENDOCRINE: Denies fatigue, weight change, polydipsia or polyurina. GENITOURINARY: Denies burning, hematuria or urgency with micturation. HEMATOLOGIC: Denies history of anemia or bleeding. PHYSICAL EXAMINATION Blood pressure 146/71 heart rate 86 afebrile and maintaining oxygen saturation on nasal cannula. CONSTITUTIONAL: No apparent distress. HEENT: Head is normocephalic. Pupils are equal, round. Sclerae anicteric. Mucous membranes of the mouth are moist. No JVD. No carotid bruit. CHEST EXAMINATION: Lungs are clear to auscultation. No chest wall tenderness is noted on palpation or with deep breathing. HEART EXAMINATION: Regular rate and rhythm. S1, S2 heard. No murmurs, gallops or rub. ABDOMEN: Soft, nontender. EXTREMITIES: 2+ peripheral pulses, no lower extremity edema and no calf tenderness. NEUROLOGIC EXAMINATION: Patient is awake, alert and oriented x3. ASSESSMENT Acute bilateral pulmonary embolism Kidney stone Bladder calculus Hypertension PLAN Continue IV heparin infusion pending pulmonary evaluation. Obtain 2-D echocardiogram and Doppler study to assess for right heart strain. He will require life-long anti-coagulation. Thank you kindly for this consultation. Nurse Practitioner note has been reviewed, I agree with a documented findings and plan of care. Patient was seen and examined. Past Medical History Past Medical History: Diabetes Mellitus Additional Past Medical History / Comment(s): Bilat PE diagnosed 07/30/2017, pt. doesnt check sugar at home, controlled with diet History of Any Multi-Drug Resistant Organisms: None Reported Past Surgical History: Hernia Repair Past Anesthesia/Blood Transfusion Reactions: No Reported Reaction Past Psychological History: No Psychological Hx Reported Smoking Status: Never smoker Past Alcohol Use History: None Reported Past Drug Use History: None Reported - Past Family History Father Family Medical History: Coronary Artery Disease (CAD), Myocardial Infarction ([place]) Brother(s) History Unknown: Yes Family Medical History: Coronary Artery Disease (CAD), Myocardial Infarction ([place]) Medications and Allergies Home Medications Medication Instructions Recorded Confirmed Type Aspirin EC [Ecotrin Low Dose] 81 mg PO DAILY 12/30/20 12/30/20 History Cholecalciferol [Vitamin D3 (25 25 mcg PO DAILY 12/30/20 12/30/20 History Mcg = 1000 Iu)] Sulfamethox-Tmp 800-160Mg [Bactrim 1 tab PO Q12HR 12/30/20 12/30/20 History DS 800-160 mg] Tamsulosin [Flomax] 0.4 mg PO DAILY 12/30/20 12/30/20 History amLODIPine [Norvasc] 5 mg PO HS 12/30/20 12/30/20 History traMADol HCl [Ultram] 50 mg PO TID PRN 12/30/20 12/30/20 History Allergies Allergy/AdvReac Type Severity Reaction Status Date / Time No Known Allergies Allergy Verified 12/30/20 16:28 Physical Exam Vitals: Vital Signs Temp Pulse Pulse Resp BP BP Pulse Ox 12/31/20 04:00 99.2 F 84 21 168/80 94 L 12/31/20 02:05 99.1 F 82 20 167/74 96 12/31/20 01:46 97.2 F L 76 18 152/70 93 L 12/31/20 01:00 98.2 F 77 18 148/68 92 L 12/31/20 00:00 78 18 152/75 87 L 12/30/20 22:46 75 18 152/75 95 12/30/20 17:22 70 18 135/77 95 12/30/20 15:18 80 22 148/86 95 12/30/20 13:47 99.2 F 63 18 116/78 94 L Intake and Output 12/30/20 12/31/20 12/31/20 22:59 06:59 14:59 Intake Total 0 170.507 Output Total 1150 Balance -1150 170.507 Intake: Intake, IV Titration 170.507 Amount Heparin Sod,Pork in 0.45% 170.507 NaCl 25,000 unit In 0.45 % NaCl 1 250ml.bag @ 18 UNITS/KG/HR 22.534 mls/hr IV .Q11H6M [facility] Rx#: [id number] Oral 0 Output: Urine 1150 Other: Voiding Method Urinal # Voids 2 Weight 124.5 kg Results 12/31/20 07:57 12/30/20 20:55 Cardiac Enzymes 12/30/20 12/30/20 12/30/20 Range/Units 14:49 14:49 20:55 AST 21 12 L (17-59) U/L Troponin I <0.012 (0.000-0.034) ng/mL Coagulation 12/30/20 12/31/20 Range/Units 14:49 07:57 PT 10.4 11.3 (9.0-12.0) sec APTT 23.8 113.5 H* (22.0-30.0) sec CBC 12/30/20 12/31/20 Range/Units 14:49 07:57 WBC 7.5 7.9 (3.8-10.6) k/uL RBC 4.39 4.29 L (4.30-5.90) m/uL Hgb 14.2 13.5 (13.0-17.5) gm/dL Hct 41.6 39.9 (39.0-53.0) % Plt Count 172 164 (150-450) k/uL Comprehensive Metabolic Panel 12/30/20 12/30/20 Range/Units 14:49 20:55 Sodium 136 L 141 (137-145) mmol/L Potassium 4.2 3.8 (3.5-5.1) mmol/L Chloride 103 106 (98-107) mmol/L Carbon Dioxide 24 27.2 (22-30) mmol/L BUN 13 14.0 (9-20) mg/dL Creatinine 0.81 1.1 (0.66-1.25) mg/dL Glucose 133 H 158 H (74-99) mg/dL Calcium 9.0 8.3 L (8.4-10.2) mg/dL AST 21 12 L (17-59) U/L ALT 13 12 (4-49) U/L Alkaline Phosphatase 65 59 (38-126) U/L Total Protein 7.1 6.1 L (6.3-8.2) g/dL Albumin 3.9 3.50 L (3.5-5.0) g/dL Current Medications Generic Name Dose Route Start Last Admin Trade Name Freq PRN Reason Stop Dose Admin Acetaminophen 650 mg 12/30/20 17:03 Acetaminophen Tab 325 Mg Tab PO Q6HR PRN Mild Pain or Fever > 100.5 Amlodipine Besylate 5 mg 12/30/20 21:00 12/30/20 22:48 Amlodipine 5 Mg Tab PO 5 mg HS GABY Administration Aspirin 81 mg 12/31/20 09:00 12/31/20 08:21 Aspirin 81 Mg PO 81 mg DAILY GABY Administration Cholecalciferol 25 mcg 12/31/20 09:00 12/31/20 08:22 Cholecalciferol 25 Mcg (1000 Iu) Tablet PO 25 mcg DAILY GABY Administration Heparin Sodium (Porcine) 0 unit 12/31/20 00:23 Heparin Sodium 1,000 Un/Ml (10ml Vl) IV PER PROTOCOL PRN Low PTT Protocol Sodium Chloride 1,000 mls @ 100 mls/hr 12/30/20 17:15 12/31/20 02:30 Saline 0.9% IV 100 mls/hr .Q10H GABY Administration Ceftriaxone Sodium 1 gm/ 50 mls @ 100 mls/hr 12/31/20 09:00 12/31/20 08:21 Sodium Chloride IVPB 100 mls/hr Q24HR GABY Administration Heparin Sodium/Sodium Chloride 250 mls @ 22.534 mls/hr 12/31/20 00:30 12/31/20 08:15 25,000 unit/ Sodium Chloride IV 22 units/kg/hr .Q11H6M GABY 27.542 mls/hr Titration Protocol 18 UNITS/KG/HR Ibuprofen 400 mg 12/30/20 17:03 Ibuprofen 400 Mg Tab PO Q6HR PRN Mild Pain or Fever > 100.5 Ketorolac Tromethamine 15 mg 12/30/20 17:03 Ketorolac 15 Mg/Ml 1 Ml Vial IVP 01/02/21 17:05 Q6HR PRN Moderate Pain Morphine Sulfate 4 mg 12/30/20 17:03 Morphine Sulfate 4 Mg/Ml Syringe IV Q4HR PRN Severe Pain Naloxone HCl 0.2 mg 12/30/20 17:03 Naloxone 0.4 Mg/Ml 1 Ml Vial IV Q2M PRN Opioid Reversal Ondansetron HCl 4 mg 12/30/20 17:03 Ondansetron 4 Mg/2 Ml Vial IVP Q8HR PRN Nausea And Vomiting Tamsulosin HCl 0.4 mg 12/31/20 09:00 12/31/20 08:22 Tamsulosin 0.4 Mg Cap.Er.24h PO 0.4 mg DAILY GABY Administration Tramadol HCl 50 mg 12/30/20 20:00 Tramadol 50 Mg Tab PO TID PRN Pain Intake and Output 12/30/20 12/31/20 12/31/20 22:59 06:59 14:59 Intake Total 0 170.507 Output Total 1150 Balance -1150 170.507 Intake: Intake, IV Titration 170.507 Amount Heparin Sod,Pork in 0.45% 170.507 NaCl 25,000 unit In 0.45 % NaCl 1 250ml.bag @ 18 UNITS/KG/HR 22.534 mls/hr IV .Q11H6M [facility] Rx#: [id number] Oral 0 Output: Urine 1150 Other: Voiding Method Urinal # Voids 2 Weight 124.5 kg 12/31/20 07:57 12/30/20 20:55
--- NOTE | 2020-12-31 12:27 | ECHOF ---
Referral Reason:pe MEASUREMENTS -------- HEIGHT: 185.4 cm WEIGHT: 124.3 kg BP: 168/80 RVIDd: 2.8 cm (< 3.3) IVSd: 1.2 cm (0.6 - 1.1) LVIDd: 4.8 cm (3.9 - 5.3) LVPWd: 1.2 cm (0.6 - 1.1) IVSs: 1.6 cm LVIDs: 4.8 cm LVPWs: 1.4 cm Ao Diam: 4.0 cm (2.0 - 3.7) AV Cusp: 2.3 cm (1.5 - 2.6) MV EXCURSION: 23.080 mm (> 18.000) MV EF SLOPE: 89 mm/s (70 - 150) EPSS: 0.4 cm MV E Kunal: 0.94 m/s MV DecT: 303 ms MV A Kunal: 1.57 m/s MV E/A Ratio: 0.60 RAP: 5.00 mmHg RVSP: 13.89 mmHg FINDINGS -------- Sinus rhythm. Morbid Obesity This was a techncally difficult study with suboptimal views, , Lumason utilized for enhancement of im ages. The left ventricular size is normal. There is borderline concentric left ventricular hypertrophy. Overall left ventricular systolic function is low-normal with, an EF between 50 - 55 %. The right ventricle is normal in size. The left atrial size is normal. The right atrial size is normal. 5.0mg OF Lumason UTLIZED: 2 OR MORE WALL SEGMENTS NOT VISUALIZED. There is mild aortic valve sclerosis. There is no evidence of aortic regurgitation. Mild mitral regurgitation is present. Mild tricuspid regurgitation present. Right ventricular systolic pressure is normal at < 35 mmHg. The pulmonic valve was not well visualized. There is no pericardial effusion. CONCLUSIONS -------- 1. The left ventricular size is normal. 2. There is borderline concentric left ventricular hypertrophy. 3. Overall left ventricular systolic function is low-normal with, an EF between 50 - 55 %. 4. The right ventricle is normal in size. 5. The left atrial size is normal. 6. The right atrial size is normal. 7. 5.0mg OF Lumason UTLIZED: 2 OR MORE WALL SEGMENTS NOT VISUALIZED. 8. There is mild aortic valve sclerosis. 9. Mild mitral regurgitation is present. 10. Mild tricuspid regurgitation present. 11. The pulmonic valve was not well visualized. 12. There is no pericardial effusion. REFERENCE TEST CLERK: Selene Lr RDCS
--- NOTE | 2020-12-31 16:33 | P.GSCN ---
History of Present Illness Consult date: 12/31/20 Reason for Consult: Bladder stone, left renal stone History of present illness: This is a 75-year-old male admitted to the hospital with UTI, and finding of PE on CT chest. He underwent a CT on presentation that showed evidence of a 2.7 cm bladder stone, and a 8 mm left upper pole stone. Patient had a UTI on presentation. He indicated for the past few days she's been having gross hematuria, difficulty voiding. He indicated he's been having intermittency with urination, but feels that he is voiding to completion. This is the first his noticed gross hematuria, and indicated this a.m. it has resolved. Denies any previous history of kidney stones or bladder stones. No previous surgeries. Denies any voiding dysfunction at baseline prior to this Review of Systems - Constitutional Denies fever, Denies weight loss - EENT Ears, nose, mouth and throat: Denies dysphagia - Cardiovascular Reports chest pain - Respiratory Denies cough, Denies 7 - Gastrointestinal Denies nausea, Denies vomiting - Genitourinary Reports flank pain, Reports hematuria - Integumentary Denies rash, Denies unusual bruising - Neurological Denies headaches, Denies syncope - Hematologic/Lymphatic Denies easy bleeding, Denies easy bruising Past Medical History Past Medical History: Diabetes Mellitus Additional Past Medical History / Comment(s): Bilat PE diagnosed 07/30/2017, pt. doesnt check sugar at home, controlled with diet History of Any Multi-Drug Resistant Organisms: None Reported Past Surgical History: Hernia Repair Past Anesthesia/Blood Transfusion Reactions: No Reported Reaction Past Psychological History: No Psychological Hx Reported Smoking Status: Never smoker Past Alcohol Use History: None Reported Past Drug Use History: None Reported - Past Family History Father Family Medical History: Coronary Artery Disease (CAD), Myocardial Infarction ([place]) Brother(s) History Unknown: Yes Family Medical History: Coronary Artery Disease (CAD), Myocardial Infarction ([place]) Medications and Allergies Home Medications Medication Instructions Recorded Confirmed Type Aspirin EC [Ecotrin Low Dose] 81 mg PO DAILY 12/30/20 12/30/20 History Cholecalciferol [Vitamin D3 (25 25 mcg PO DAILY 12/30/20 12/30/20 History Mcg = 1000 Iu)] Sulfamethox-Tmp 800-160Mg [Bactrim 1 tab PO Q12HR 12/30/20 12/30/20 History DS 800-160 mg] Tamsulosin [Flomax] 0.4 mg PO DAILY 12/30/20 12/30/20 History amLODIPine [Norvasc] 5 mg PO HS 12/30/20 12/30/20 History traMADol HCl [Ultram] 50 mg PO TID PRN 12/30/20 12/30/20 History Allergies Allergy/AdvReac Type Severity Reaction Status Date / Time No Known Allergies Allergy Verified 12/30/20 16:28 Surgical - Exam Vital Signs Temp Pulse Resp BP Pulse Ox 99.2 F 63 18 116/78 94 L 12/30/20 13:47 12/30/20 13:47 12/30/20 13:47 12/30/20 13:47 12/30/20 13:47 - General well developed, well nourished, no distress, no pain - Eyes PERRL, normal ocular movement - ENT normal nares, normal mucosa - Respiratory normal expansion, normal respiratory effort - Abdomen Abdomen: soft, non tender - Psychiatric oriented to time, oriented to person, oriented to place Results - Labs 12/31/20 07:57 12/30/20 20:55 Abnormal Lab Results - Last 24 Hours (Table) 12/30/20 12/30/20 12/31/20 Range/Units 20:55 20:55 07:57 RBC 4.29 L (4.30-5.90) m/uL APTT (22.0-30.0) sec D-Dimer 7.35 H (<0.60) mg/L FEU Glucose 158 H (70-110) mg/dL Calcium 8.3 L (8.7-10.3) mg/dL AST 12 L (14-35) U/L Total Protein 6.1 L (6.2-8.2) g/dL Albumin 3.50 L (3.80-4.90) g/dL Albumin/Globulin Ratio 1.35 L (1.60-3.17) g/dL 12/31/20 12/31/20 Range/Units 07:57 14:34 RBC (4.30-5.90) m/uL APTT 113.5 H* 46.8 H (22.0-30.0) sec D-Dimer (<0.60) mg/L FEU Glucose (70-110) mg/dL Calcium (8.7-10.3) mg/dL AST (14-35) U/L Total Protein (6.2-8.2) g/dL Albumin (3.80-4.90) g/dL Albumin/Globulin Ratio (1.60-3.17) g/dL Microbiology - Last 24 Hours (Table) 12/30/20 15:17 Urine Culture - Preliminary Urine,Voided Diabetes panel 12/30/20 Range/Units 20:55 Sodium 141 (135-145) mmol/L Potassium 3.8 (3.5-5.5) mmol/L Chloride 106 (96-109) mmol/L Carbon Dioxide 27.2 (21.6-31.8) mmol/L BUN 14.0 (9.0-27.0) mg/dL Creatinine 1.1 (0.6-1.5) mg/dL Glucose 158 H (70-110) mg/dL Calcium 8.3 L (8.7-10.3) mg/dL AST 12 L (14-35) U/L ALT 12 (10-49) U/L Alkaline Phosphatase 59 (41-126) U/L Total Protein 6.1 L (6.2-8.2) g/dL Albumin 3.50 L (3.80-4.90) g/dL Calcium panel 12/30/20 Range/Units 20:55 Calcium 8.3 L (8.7-10.3) mg/dL Albumin 3.50 L (3.80-4.90) g/dL Pituitary panel 12/30/20 Range/Units 20:55 Sodium 141 (135-145) mmol/L Potassium 3.8 (3.5-5.5) mmol/L Chloride 106 (96-109) mmol/L Carbon Dioxide 27.2 (21.6-31.8) mmol/L BUN 14.0 (9.0-27.0) mg/dL Creatinine 1.1 (0.6-1.5) mg/dL Glucose 158 H (70-110) mg/dL Calcium 8.3 L (8.7-10.3) mg/dL Adrenal panel 12/30/20 Range/Units 20:55 Sodium 141 (135-145) mmol/L Potassium 3.8 (3.5-5.5) mmol/L Chloride 106 (96-109) mmol/L Carbon Dioxide 27.2 (21.6-31.8) mmol/L BUN 14.0 (9.0-27.0) mg/dL Creatinine 1.1 (0.6-1.5) mg/dL Glucose 158 H (70-110) mg/dL Calcium 8.3 L (8.7-10.3) mg/dL Total Bilirubin 0.6 (0.3-1.2) mg/dL AST 12 L (14-35) U/L ALT 12 (10-49) U/L Alkaline Phosphatase 59 (41-126) U/L Total Protein 6.1 L (6.2-8.2) g/dL Albumin 3.50 L (3.80-4.90) g/dL - Imaging CT scan - abdomen: image reviewed (Large bladder stone, 8 mm left renal stone, no hydronephrosis appreciated) Assessment and Plan Assessment: 75-year-old male admitted to the hospital with PE and a UTI. Underwent a CT that demonstrated evidence of an 8 mm left upper pole stone, and a 2.7 cm bladder stone. Had gross hematuria which is resolving now. Urine on presentation is concerning for UTI. his hematuria is mostly secondary to his UTI and bladder stone. At this time given his recent diagnosis of PE and his anticoagulation no acute intervention is needed for the bladder stones area in his renal stone is nonobstructive. -Can follow-up as an outpatient, we'll plan on doing a cystolitholapaxy and a left ureteroscopy once it safe for him to discontinue anticoagulation -Follow up on urine culture, we'll need a minimum 7 days of antibiotics
--- NOTE | 2020-12-31 17:43 | PN ---
PROGRESS NOTE DATE OF SERVICE: 12/31/2020 This 75-year-old gentleman who was admitted with chest and flank pain is being closely monitored at this time. Cardiology has seen the patient and a 2D echo with Doppler was done today which showed ejection fraction about 50% to 55% and minimal valvular abnormalities. Cardiology has recommended IV heparin infusion for acute pulmonary embolism. Chest CTA showed multiple bilateral pulmonary emboli, essentially new. Left lower lobe pneumonia was also noted. Neurology has seen the patient and Dr. Jamil recommended outpatient followup and urine culture and minimally 7 days of antibiotics. No chest pain. No palpitations. Past medical history reviewed. REVIEW OF SYSTEMS: CARDIOVASCULAR SYSTEM: As mentioned earlier. RESPIRATORY SYSTEM: As mentioned earlier. GI: As mentioned earlier. : No dysuria. NERVOUS SYSTEM: No numbness, weakness. CURRENT MEDICATIONS: Current medications are reviewed and include Tylenol, Norvasc, aspirin, Rocephin, heparin infusion, Motrin, Toradol. Doses are reviewed. PHYSICAL EXAMINATION: Patient is alert, oriented x3. Pulse 83, blood pressure 138/70, respiration 20, temperature 98.4, pulse ox 97% on 2 L. HEENT: Conjunctivae normal. NECK: No jugular venous distention. CARDIOVASCULAR: S1, S2 muffled. RESPIRATION: Breath sounds diminished at the bases. A few scattered rhonchi. ABDOMEN: Soft, non-tender. NERVOUS SYSTEM: No focal deficit. LABS: D-dimer is 7.35. Accu-Cheks are noted. Albumin is 3.5. ASSESSMENT: 1. Acute bilateral pulmonary embolism with the presence of left-sided chest pain. 2. Left flank pain with possible acute pyelonephritis and urinary tract infection. 3. Left upper pole nephrolithiasis and bladder stones. 4. Mild hyponatremia. 5. Diabetes mellitus, type 2. 6. History of bilateral pulmonary embolism previously. 7. Heparin monitoring. 8. Elevated D-dimer. 9. Hyponatremia. RECOMMENDATIONS AND DISCUSSION: In this 75-year-old gentleman who presented with multiple complex medical issues, at this time I recommend to continue current medications, continue with the IV heparin, symptomatic treatment. Otherwise, continue the IV antibiotics. Follow the cultures. Closely follow with Pulmonology and Cardiology. Urology input appreciated. Prognosis is guarded because of multiple complex medical issues. Further recommendations to follow. MMODL / IJN: [id number] /
--- NOTE | 2020-12-31 18:01 | P.CNPUL ---
History of Present Illness Consult date: 12/31/20 Reason for consult: pulmonary embolism History of present illness: 75-year-old male patient, admitted to the hospital because of pain in the left posterior chest area. He was having also some anterior chest wall pain, pleuritic in nature, worse with deep breathing. The patient also reported a few days ago to have some hematuria, current urine output is clear. He was also having some intermittency with urination but he was voiding completely. This morning, he does not have any further bouts of hematuria. Nevertheless, an investigation was done in the hospital included a CT angiogram of the chest that showed bilateral pulmonary embolism as the patient was found to have multiple bilateral pulmonary emboli involving the right lower lobe and the left lower lobe. In addition to that, there was a left lower lobe atelectasis with a small effusion. Echocardiogram showed preserved LV function and there was no RV strain pattern. Troponins were negative. Patient is currently on IV heparin. D-dimer is at 7.35. PTT is therapeutic. At the same time, the patient underwent a CAT scan of the abdomen and pelvis and the patient was found to have kidney stones including a nonobstructive Gas in the upper lobe of the left kidney measuring 8 mm in size and another 2.7 cm calculus in the bladder. UA was abnormal. The patient was suspected to have a underlying urine checked infection and the patient is currently on IV Rocephin. No significant shortness of breath. No hemodynamic instability. Pulse ox 949 on 2 L of oxygen by nasal cannula. Noted the patient has had previous history of pulmonary embolism. He was diagnosed having PE back in 2018. At that time his pulmonary embolism was unprovoked. He was treated with a coagulation for a total of 6 months and subsequently articulation was stopped. No recent surgery. 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 Nevertheless is quite active. No history of malignancy. He has a daughter also suffers from clotting including DVTs. No hemoptysis. No pleurisy. No stroke. No cardiac arrest. No myocardial infarction. No history of underlying coronary artery disease. He has hypertension and BPH. He is hematuria subsided. Review of Systems Constitutional: Reports as per HPI Eyes: denies as per HPI, denies blurred vision, denies bulging eye, denies decreased vision, denies diplopia, denies discharge, denies dry eye, denies irritation, denies itching, denies pain, denies photophobia, denies loss of peripheral vision, denies loss of vision, denies tunnel vision/blind spots Ears: deny: decreased hearing, ear discharge, earache, tinnitus Ears, nose, mouth and throat: Reports as per HPI Breasts: absent: as per HPI, gynecomastia Cardiovascular: Reports chest pain, Reports decreased exercise tolerance, Reports dyspnea on exertion, Reports shortness of breath Respiratory: Reports dyspnea, Reports pleurisy Gastrointestinal: Reports as per HPI Genitourinary: Reports flank pain, Reports kidney stones Musculoskeletal: Reports as per HPI Musculoskeletal: absent: ankle pain, ankle stiffness, ankle swelling Integumentary: Reports as per HPI Neurological: Reports as per HPI Psychiatric: Reports as per HPI Endocrine: Reports as per HPI Hematologic/Lymphatic: Reports as per HPI Allergic/Immunologic: Reports as per HPI Past Medical History Past Medical History: Diabetes Mellitus, Prostate Disorder Additional Past Medical History / Comment(s): Bilat PE diagnosed 07/30/2017, pt. doesnt check sugar at home, controlled with diet History of Any Multi-Drug Resistant Organisms: None Reported Past Surgical History: Hernia Repair Past Anesthesia/Blood Transfusion Reactions: No Reported Reaction Past Psychological History: No Psychological Hx Reported Smoking Status: Never smoker Past Alcohol Use History: None Reported Past Drug Use History: None Reported - Past Family History Father Family Medical History: Coronary Artery Disease (CAD), Myocardial Infarction ([place]) Brother(s) History Unknown: Yes Family Medical History: Coronary Artery Disease (CAD), Myocardial Infarction ([place]) Medications and Allergies Home Medications Medication Instructions Recorded Confirmed Type Aspirin EC [Ecotrin Low Dose] 81 mg PO DAILY 12/30/20 12/30/20 History Cholecalciferol [Vitamin D3 (25 25 mcg PO DAILY 12/30/20 12/30/20 History Mcg = 1000 Iu)] Sulfamethox-Tmp 800-160Mg [Bactrim 1 tab PO Q12HR 12/30/20 12/30/20 History DS 800-160 mg] Tamsulosin [Flomax] 0.4 mg PO DAILY 12/30/20 12/30/20 History amLODIPine [Norvasc] 5 mg PO HS 12/30/20 12/30/20 History traMADol HCl [Ultram] 50 mg PO TID PRN 12/30/20 12/30/20 History Allergies Allergy/AdvReac Type Severity Reaction Status Date / Time No Known Allergies Allergy Verified 12/30/20 16:28 Physical Exam Vitals: Vital Signs Temp Pulse Pulse Resp BP BP Pulse Ox 12/31/20 16:38 94 L 12/31/20 16:00 98.4 F 83 20 138/70 97 12/31/20 14:00 83 20 12/31/20 12:00 98.0 F 86 20 151/72 96 12/31/20 08:00 98.7 F 86 18 146/71 96 12/31/20 04:00 99.2 F 84 21 168/80 94 L 12/31/20 02:05 99.1 F 82 20 167/74 96 12/31/20 01:46 97.2 F L 76 18 152/70 93 L 12/31/20 01:00 98.2 F 77 18 148/68 92 L 12/31/20 00:00 78 18 152/75 87 L 12/30/20 22:46 75 18 152/75 95 Intake and Output 12/31/20 12/31/20 12/31/20 06:59 14:59 22:59 Intake Total 0 430.000 Output Total 1150 450 Balance -1150 -20.000 Intake: Intake, IV Titration 250.000 Amount Heparin Sod,Pork in 0.45% 250.000 NaCl 25,000 unit In 0.45 % NaCl 1 250ml.bag @ 18 UNITS/KG/HR 22.534 mls/hr IV .Q11H6M [facility] Rx#: [id number] Oral 0 180 Output: Urine 1150 450 Other: Voiding Method Urinal Urinal # Voids 2 Weight 124.5 kg Gen. appearance, comfortable, the patient is currently not in acute respiratory distress Head exam was generally normal. There was no scleral icterus or corneal arcus. Mucous membranes were moist. Neck was supple and without jugular venous distension, thyromegaly, or carotid bruits. Carotids were easily palpable bilaterally. There was no adenopathy. Lungs were clear to auscultation and percussion, and with normal diaphragmatic excursion. No wheezes or rales were noted. Cardiac exam revealed the PMI to be normally situated and sized. The rhythm was regular and no extrasystoles were noted during several minutes of auscultation. The first and second heart sounds were normal and physiologic splitting of the second heart sound was noted. There were no murmurs, rubs, clicks, or gallops. Abdomen abdomen Abdominal exam revealed normal bowel sounds. The abdomen was soft, non-tender, and without masses, organomegaly, or appreciable enlargement of the abdominal aorta. Examination of the extremities revealed easily palpable radial, femoral and pedal pulses. There was no cyanosis, clubbing or edema. Examination of the skin revealed no evidence of significant rashes, suspicious appearing nevi or other concerning lesions. Neurologically, the patient is awake and alert and the patient does not have any focal neurological deficit. Cranial nerves are essentially intact. Results - Laboratory Findings CBC and BMP: 12/31/20 07:57 12/30/20 20:55 PT/INR, D-dimer PT 11.3 sec (9.0-12.0) 12/31/20 07:57 INR 1.1 (<1.2) 12/31/20 07:57 D-Dimer 7.35 mg/L FEU (<0.60) H 12/30/20 20:55 Abnormal lab findings: Abnormal Labs 12/30/20 12/30/20 12/30/20 14:49 15:17 20:55 RBC APTT D-Dimer 7.35 H Sodium 136 L Glucose 133 H Calcium AST Total Protein Albumin Albumin/Globulin Ratio Urine Protein Trace H Urine Glucose (UA) Trace H Urine Blood Trace H Ur Leukocyte Esterase Large H Urine RBC 13 H Urine WBC >182 H Urine WBC Clumps Few H Urine Bacteria Few H Urine Mucus Moderate H 12/30/20 12/31/20 12/31/20 20:55 07:57 07:57 RBC 4.29 L APTT 113.5 H* D-Dimer Sodium Glucose 158 H Calcium 8.3 L AST 12 L Total Protein 6.1 L Albumin 3.50 L Albumin/Globulin Ratio 1.35 L Urine Protein Urine Glucose (UA) Urine Blood Ur Leukocyte Esterase Urine RBC Urine WBC Urine WBC Clumps Urine Bacteria Urine Mucus 12/31/20 14:34 RBC APTT 46.8 H D-Dimer Sodium Glucose Calcium AST Total Protein Albumin Albumin/Globulin Ratio Urine Protein Urine Glucose (UA) Urine Blood Ur Leukocyte Esterase Urine RBC Urine WBC Urine WBC Clumps Urine Bacteria Urine Mucus - Diagnostic Findings Chest x-ray: image reviewed CT scan - chest: image reviewed Assessment and Plan Plan: 1 acute bilateral pulmonary embolism, left posterior chest pleurisy/pain in addition to atelectasis noted on the CAT scan of the chest. Nevertheless, the embolism is bilateral and the patient is currently on IV heparin. 2 previous history of pulmonary embolism back in 2018, treated with medical evaluation for a total of 6 months along with a positive family history of pulmonary embolism. 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 Continue IV heparin for now and switch this patient to Eliquis as of tomorrow for long-term and lifelong anticoagulation. Urology to evaluate nephrolithiasis and kidney stones Echocardiography showing no strain pattern Troponins are negative Wean FiO2 as tolerated to maintain a saturation above 90% May consider hypercoagulable workup with a later stage post discharge We'll continue to follow
[2020-12-31] MEDS: amLODIPine 5 MG TAB PO SCH (20:18)
[2021-01-01] MEDS: HEPARIN SOD,PORK IN 0.45% NACL 25,000 UNIT in 0.45% NACL 1 250ML.BAG IV SCH ×3 (00:13→13:01)
[2021-01-01] MEDS: SODIUM CHLORIDE 0.9% 1,000 ML IV SCH ×2 (00:14→20:39)
[2021-01-01] MEDS: ASPIRIN 81 MG PO SCH (08:03)
[2021-01-01] MEDS: TAMSULOSIN 0.4 MG CAP.ER.24H PO SCH (08:03)
[2021-01-01] MEDS: CHOLECALCIFEROL 25 MCG (1000 IU) TABLET PO SCH (08:03)
--- NOTE | 2021-01-01 10:46 | P.PN ---
Subjective Progress Note Date: 01/01/21 75-year-old male patient, admitted to the hospital because of pain in the left posterior chest area. He was having also some anterior chest wall pain, pleuritic in nature, worse with deep breathing. The patient also reported a few days ago to have some hematuria, current urine output is clear. He was also having some intermittency with urination but he was voiding completely. This morning, he does not have any further bouts of hematuria. Nevertheless, an investigation was done in the hospital included a CT angiogram of the chest that showed bilateral pulmonary embolism as the patient was found to have multiple bilateral pulmonary emboli involving the right lower lobe and the left lower lobe. In addition to that, there was a left lower lobe atelectasis with a small effusion. Echocardiogram showed preserved LV function and there was no RV strain pattern. Troponins were negative. Patient is currently on IV heparin. D-dimer is at 7.35. PTT is therapeutic. At the same time, the patient underwent a CAT scan of the abdomen and pelvis and the patient was found to have kidney stones including a nonobstructive Gas in the upper lobe of the left kidney measuring 8 mm in size and another 2.7 cm calculus in the bladder. UA was abnormal. The patient was suspected to have a underlying urine checked infection and the patient is currently on IV Rocephin. No significant shortness of breath. No hemodynamic instability. Pulse ox 949 on 2 L of oxygen by nasal cannula. Noted the patient has had previous history of pulmonary embolism. He was diagnosed having PE back in 2018. At that time his pulmonary embolism was unprovoked. He was treated with a coagulation for a total of 6 months and subsequently articulation was stopped. No recent surgery. 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 Nevertheless is quite active. No history of malignancy. He has a daughter also suffers from clotting including DVTs. No hemoptysis. No pleurisy. No stroke. No cardiac arrest. No myocardial infarction. No history of underlying coronary artery disease. He has hypertension and BPH. He is hematuria subsided. on 01/01/2021 patient seen in follow-up care unit, he is awake and alert, oriented 3, he is on 2 L of oxygen pulse ox 94%, overnight he was complaining of pleuritic chest discomfort in the left chest that was worse with deep breathing. He remains on heparin infusion for acute bilateral pulmonary emboli. His echocardiogram has reviewed showing no evidence of right ventricular strain. His vitals have been stable, he denies any hemoptysis, he has received some pain medication for pleuritic chest pain. Remains on Rocephin for urinary tract infection, no significant shortness of breath, no hemodynamic instability overnight, no hemoptysis. Objective - Vital Signs Vital signs: Vital Signs Temp 98.3 F 01/01/21 08:00 Pulse 91 01/01/21 08:00 Resp 19 01/01/21 08:00 BP 158/50 01/01/21 08:00 Pulse Ox 94 L 01/01/21 08:50 Intake & Output 12/31/20 01/01/21 01/01/21 18:59 06:59 18:59 Intake Total 430.000 341.905 240 Output Total 450 2150 Balance -20.000 -1808.095 240 Weight 125 kg Intake: Intake, IV Titration 250.000 221.905 Amount Heparin Sod,Pork in 0.45% 250.000 221.905 NaCl 25,000 unit In 0.45 % NaCl 1 250ml.bag @ 18 UNITS/KG/HR 22.534 mls/hr IV .Q11H6M [facility] Rx#: [id number] Oral 180 120 240 Output: Urine 450 2150 Other: Voiding Method Urinal Urinal Urinal # Voids 1 - Exam GENERAL EXAM: Alert, a pleasant, 75-year-old white male, on 2 L oxygen pulse ox of 94%comfortable in no apparent distress. HEAD: Normocephalic/atraumatic. EYES: Normal reaction of pupils, equal size. Conjunctiva pink, sclera white. NOSE: Clear with pink turbinates. THROAT: No erythema or exudates. NECK: No masses, no JVD, no thyroid enlargement, no adenopathy. CHEST: No chest wall deformity. Symmetrical expansion. LUNGS: Equal air entry with no crackles diminished breath sounds at the bases, CVS: Regular rate and rhythm, normal S1 and S2, no gallops, no murmurs, no rubs ABDOMEN: Soft, nontender. No hepatosplenomegaly, normal bowel sounds, no guarding or rigidity. EXTREMITIES: No clubbing, no edema, no cyanosis, 2+ pulses and upper and lower extremities. MUSCULOSKELETAL: Muscle strength and tone normal. SPINE: No scoliosis or deformity SKIN: No rashes CENTRAL NERVOUS SYSTEM: Alert and oriented -3. No focal deficits, tone is normal in all 4 extremities. PSYCHIATRIC: Alert and oriented -3. Appropriate affect. Intact judgment and insight. - Labs CBC & Chem 7: 12/31/20 07:57 12/30/20 20:55 Labs: Abnormal Lab Results - Last 24 Hours (Table) 12/31/20 Range/Units 14:34 APTT 46.8 H (22.0-30.0) sec Microbiology - Last 24 Hours (Table) 12/30/20 15:17 Urine Culture - Preliminary Urine,Voided Gram Neg Bacilli 12/30/20 20:55 Blood Culture - Preliminary Blood No Growth after 24 hours Assessment and Plan Plan: 1 acute bilateral pulmonary embolism, left posterior chest pleurisy/pain in addition to atelectasis noted on the CAT scan of the chest. Nevertheless, the embolism is bilateral and the patient is currently on IV heparin. 2 previous history of pulmonary embolism back in 2018, treated with medical evaluation for a total of 6 months along with a positive family history of pulmonary embolism. Consider underlying hypercoagulable disease 3 shortness of breath and chest pain secondary to above 4 nephrolithiasis along with a 2.7 cm bladder stone and an 8 mm left upper lobe kidney stone 5 brief hematuria, recovered 6 suspected UTI currently on Rocephin 7 BPH 8 hypertension Plan: Continue current medical treatment heparin infusion for another 24 hours Continue pain control for pleuritic chest pain Echocardiogram reviewed, show no evidence of RV strain, no hemodynamic instability, Need lifelong anticoagulation for recurrent episode of pulmonary embolism continue to follow Time with Patient: Less than 30
[2021-01-01 11:53] LABS: Basophils % (A) 0 %; Eosinophils # (A) 0.2 k/uL (0-0.7); Eosinophils % (A) 3 %; HCT 37.4 % (39.0-53.0); HGB 12.9 gm/dL (13.0-17.5); Lymphocytes # (A) 1.2 k/uL (1.0-4.8); Lymphocytes % (A) 18 %; MCHC 34.4 g/dL (31.0-37.0); MCV 92.8 fL (80.0-100.0); Mean Platelet Volume 6.9; Monocytes # (A) 0.4 k/uL (0-1.0); Monocytes % (A) 7 %; Neutrophils # (A) 4.8 k/uL (1.3-7.7); Neutrophils % (A) 71 %; Platelet Count 173 k/uL (150-450); RBC 4.03 m/uL (4.30-5.90); RDW 13.3 % (11.5-15.5); WBC 6.7 k/uL (3.8-10.6)
[2021-01-01 12:20] LABS: African American GFR (CKD) >90 (>60 ml/min/1.73 sqM); Anion Gap 6 mmol/L; Blood Urea Nitrogen 11 mg/dL (9-20); Calcium 8.5 mg/dL (8.4-10.2); Carbon Dioxide 26 mmol/L (22-30); Chloride 105 mmol/L (98-107); Glucose 138 mg/dL (74-99); Non-African American GFR(CKD) >90 (>60 ml/min/1.73 sqM); Potassium 3.8 mmol/L (3.5-5.1); Sodium 137 mmol/L (137-145)
--- NOTE | 2021-01-01 15:14 | P.CONS ---
History of Present Illness - Reason for Consult Consult date: 01/01/21 Recurrent PE - History of Present Illness The patient is a 75-year-old white male, with overall well controlled medical problems. The patient had been admitted in 07/29 with a three-day history of chest and back pain as well as shortness of breath and was found to have a right lower lobe subsegmental PE. Dopplers at the time were negative. No obvious provoking factor was identified. The patient was discharged on Eliquis. It appears that this was discontinued after 6 months The patient came back to the hospital with recurrent of left-sided chest pain as well as right-sided back and chest pain with pleuritic symptoms started about 2-3 days ago. This was associated with progressive shortness of breath. She denied any significant cough or hemoptysis. A few days prior to that he had had some blood in the urine. In the hospital the patient had repeat CTA which now showed bilateral PE, confirming a new event. Patient with a admitted and started on IV heparin CT of the abdomen and pelvis showed a 8 mm nonobstructing calculus in the left kidney, and a 2.3 cm calculus in the bladder. There was no abnormal adenopathy or other suspicious lesions seen The patient denied any provoking factors with this event also. No history of any chronic inflammatory condition, testosterone or steroid use. She does not have any personal history of malignancy. He has never had a colonoscopy. He does not recall if he has ever had a PSA done. He denied any side effects with anticoagulation previously. He states that his maternal grandmother had a history of breast cancer. His daughter has had blood clot in association with oral contraceptive use Review of Systems Constitutional: Denies chills, Denies fever Eyes: denies blurred vision, denies pain Ears: deny: decreased hearing, ear discharge, earache, tinnitus Ears, nose, mouth and throat: Denies headache, Denies sore throat Cardiovascular: Reports chest pain, Reports shortness of breath Respiratory: Reports as per HPI, Reports dyspnea, Reports pain on inspiration Gastrointestinal: Denies abdominal pain, Denies diarrhea, Denies nausea, Denies vomiting Genitourinary: Reports as per HPI, Reports hematuria Musculoskeletal: Denies myalgias Integumentary: Denies pruritus, Denies rash Neurological: Denies numbness, Denies weakness Psychiatric: Denies anxiety, Denies depression Endocrine: Denies fatigue, Denies weight change Hematologic/Lymphatic: Reports as per HPI, Reports thrombophilia Past Medical History Past Medical History: Diabetes Mellitus, Prostate Disorder Additional Past Medical History / Comment(s): Bilat PE diagnosed 07/30/2017, pt. doesnt check sugar at home, controlled with diet History of Any Multi-Drug Resistant Organisms: None Reported Past Surgical History: Hernia Repair Past Anesthesia/Blood Transfusion Reactions: No Reported Reaction Past Psychological History: No Psychological Hx Reported Smoking Status: Never smoker Past Alcohol Use History: None Reported Past Drug Use History: None Reported - Past Family History Father Family Medical History: Coronary Artery Disease (CAD), Myocardial Infarction ([place]) Brother(s) History Unknown: Yes Family Medical History: Coronary Artery Disease (CAD), Myocardial Infarction ([place]) Medications and Allergies Home Medications Medication Instructions Recorded Confirmed Type Aspirin EC [Ecotrin Low Dose] 81 mg PO DAILY 12/30/20 12/30/20 History Cholecalciferol [Vitamin D3 (25 25 mcg PO DAILY 12/30/20 12/30/20 History Mcg = 1000 Iu)] Sulfamethox-Tmp 800-160Mg [Bactrim 1 tab PO Q12HR 12/30/20 12/30/20 History DS 800-160 mg] Tamsulosin [Flomax] 0.4 mg PO DAILY 12/30/20 12/30/20 History amLODIPine [Norvasc] 5 mg PO HS 12/30/20 12/30/20 History traMADol HCl [Ultram] 50 mg PO TID PRN 12/30/20 12/30/20 History Allergies Allergy/AdvReac Type Severity Reaction Status Date / Time No Known Allergies Allergy Verified 12/30/20 16:28 Physical Exam Vitals: Vital Signs Temp Pulse Resp BP Pulse Ox 01/01/21 14:00 76 18 01/01/21 11:58 98.7 F 76 18 139/80 96 01/01/21 08:50 94 L 01/01/21 08:00 98.3 F 91 19 158/50 93 L 01/01/21 03:47 98.6 F 88 20 160/89 95 01/01/21 00:00 98.9 F 88 20 160/82 94 L 12/31/20 20:00 99.0 F 85 18 169/83 95 12/31/20 16:38 94 L 08/20/21 16:00 98.4 F 83 20 138/70 97 Intake and Output 12/31/20 01/01/21 01/01/21 22:59 06:59 14:59 Intake Total 120 350.582 9392.371 Output Total 750 1400 1075 Balance -630 -1178.095 65.371 Intake: Intake, IV Titration 221.905 240.371 Amount Heparin Sod,Pork in 0.45% 221.905 240.371 NaCl 25,000 unit In 0.45 % NaCl 1 250ml.bag @ 18 UNITS/KG/HR 22.534 mls/hr IV .Q11H6M [facility] Rx#: [id number] Oral 120 900 Output: Urine 750 1400 1075 Other: Voiding Method Urinal Urinal Urinal # Voids 1 1 Weight 125 kg - Constitutional General appearance: no acute distress - EENT Eyes: EOMI, PERRLA ENT: hearing grossly normal, normal oropharynx - Neck Neck: no lymphadenopathy Thyroid: bilateral: normal size - Respiratory Respiratory: bilateral: CTA - Cardiovascular Rhythm: regular Heart sounds: normal: S1, S2 - Gastrointestinal General gastrointestinal: normal bowel sounds, soft - Integumentary Integumentary: normal - Neurologic Neurologic: CNII-XII intact - Musculoskeletal Musculoskeletal: strength equal bilaterally - Psychiatric Psychiatric: A&O x's 3, appropriate affect Results CBC & Chem 7: 01/01/21 11:02 01/01/21 11:02 Labs: Abnormal Lab Results - Last 24 Hours (Table) 12/31/20 01/01/21 01/01/21 Range/Units 14:34 11:02 11:02 RBC 4.03 L (4.30-5.90) m/uL Hgb 12.9 L (13.0-17.5) gm/dL Hct 37.4 L (39.0-53.0) % APTT 46.8 H (22.0-30.0) sec Glucose 138 H (74-99) mg/dL 01/01/21 Range/Units 11:02 RBC (4.30-5.90) m/uL Hgb (13.0-17.5) gm/dL Hct (39.0-53.0) % APTT 57.0 H (22.0-30.0) sec Glucose (74-99) mg/dL Microbiology - Last 24 Hours (Table) 12/30/20 15:17 Urine Culture - Preliminary Urine,Voided Gram Neg Bacilli 12/30/20 20:55 Blood Culture - Preliminary Blood No Growth after 24 hours Comments: Echo report reviewed Chest x-ray: report reviewed CT scan - abdomen: report reviewed CT scan - chest: report reviewed CT scan - pelvis: report reviewed Venous US: report reviewed Assessment and Plan (1) Pulmonary embolism Narrative/Plan: The patient had a prior history of pulmonary embolism about 3 years ago that was treated with anticoagulation. This was discontinued after 6 months. The initial event appears to have been unprovoked. He now has recurrent PE which also appears to be essentially unprovoked - The patient is improved on IV heparin. Transitioned to oral anticoagulation when felt to be stable by pulmonary medicine/admitting service. He tolerated Eliquis where previously. That would be reasonable option for him if it is covered by insurance, based on the good safety and efficacy profiles as well as convenience - The patient was advised that he would definitely be recommended lifelong anticoagulation based on his clinical history, as long as there are no tolerance issues - We discussed the possibility of an underlying hypercoagulable state as well as malignancy in patients with unprovoked PE. Regarding malignancy, the patient has already had a CTA of the chest, as well as CT of the abdomen and pelvis which have been negative. He has had 2 clots 3 years apart. He has no suspicious signs or symptoms. Therefore malignancy is felt to be much less likely. I will check PSA, and recommend that the patient have a routine colonoscopy after completing 5-6 months of anticoagulation to complete age- appropriate screening - An underlying hypercoagulable condition is much more likely especially given that his daughter also had a history of venous thrombosis. He was advised that a hypercoagulable workup would not likely change his management as he would need to be on lifelong anticoagulation anyway. However it may have implications for his family he was found to have a specific genetic condition. After discussion he and his were interested in the same. Will therefore follow- up in the office about 3-4 weeks after discharge and order testing for the same at that time. - Check repeat lower extremity Dopplers for new baseline. Current Visit: No Status: Acute Code(s): I26.99 - OTHER PULMONARY EMBOLISM WITHOUT ACUTE COR PULMONALE SNOMED Code(s): 43848421 Plan: Defer to admitting service for management of his other medical problems. Case d/w admitting service
--- NOTE | 2021-01-01 16:04 | US ---
EXAMINATION TYPE: US venous doppler duplex LE DATE OF EXAM: 01/01/2021 3:53 PM COMPARISON: NONE CLINICAL HISTORY: PE. SIDE PERFORMED: Bilateral TECHNIQUE: The lower extremity deep venous system is examined utilizing real time linear array sonog jass with graded compression, doppler sonography and color-flow sonography. VESSELS IMAGED: Common Femoral Vein Deep Femoral Vein Greater Saphenous Vein * Femoral Vein Popliteal Vein Small Saphenous Vein * Proximal Calf Veins (* superficial vessels) Right Leg: no evidence of DVT. Rouleaux flow popliteal vein Left Leg: no evidence of DVT. Rouleaux flow popliteal vein IMPRESSION: No evidence of bilateral lower extremity DVT.
[2021-01-01] MEDS: amLODIPine 5 MG TAB PO SCH (20:38)
[2021-01-02] MEDS: SODIUM CHLORIDE 0.9% 1,000 ML IV SCH ×3 (01:54→20:40)
[2021-01-02] MEDS: HEPARIN SOD,PORK IN 0.45% NACL 25,000 UNIT in 0.45% NACL 1 250ML.BAG IV SCH (01:54)
--- NOTE | 2021-01-02 02:21 | P.PN ---
Subjective Progress Note Date: 01/01/21 Principal diagnosis: Acute Bilateral PE is a 75-year-old male with a past medical history of PE and DVT, prostate disorder, diabetes mellitus admitted for chest pain and difficulty in breathing. Had a CT angio of the chest showing PE and currently all coagulation with IV heparin. On 01/01/2021 -patient is seen and examined at the bedside. Patient denies having any chest pain or difficulty in breathing. No cough or sputum production. No abdominal pain nausea vomiting or diarrhea. No dysuria or hematuria. On reviewing the patient's vitals temperature of 98.5, heart rate 80, respiratory rate 18, blood pressure 173/80, saturating at 94% on 2 L of nasal cannula. On reviewing the labs white count of 6.7, hemoglobin 12.9, platelets 173. Sodium 137, potassium 3.8, chloride 105, bicarb 26, BUN 11, creatinine 0.72. Urinalysis showing positive nitrites and more than 182 WBCs. Urine culture is positive for gram-negative bacilli. Objective - Vital Signs Vital signs: Vital Signs Temp 98.7 F 01/01/21 11:58 Pulse 76 01/01/21 14:00 Resp 18 01/01/21 14:00 BP 139/80 01/01/21 11:58 Pulse Ox 96 01/01/21 11:58 Intake & Output 12/31/20 01/01/21 01/01/21 18:59 06:59 18:59 Intake Total 430.000 464.492 1859.371 Output Total 450 2150 500 Balance -20.000 -1808.095 640.371 Weight 125 kg Intake: Intake, IV Titration 250.000 221.905 240.371 Amount Heparin Sod,Pork in 0.45% 250.000 221.905 240.371 NaCl 25,000 unit In 0.45 % NaCl 1 250ml.bag @ 18 UNITS/KG/HR 22.534 mls/hr IV .Q11H6M [facility] Rx#: [id number] Oral 180 120 900 Output: Urine 450 2150 500 Other: Voiding Method Urinal Urinal Urinal # Voids 1 1 - Exam GEN. APPEARANCE: alert, in no apparent distress HE ENT: No pallor. No icterus. RESPIRATORY EXAM: Bilateral BS ,slightest diminished at the bases, No wheezes or crackles. CARDIOVASCULAR EXAM: S1-S2 heard. No additional sounds. GI/ABDOMINAL EXAM: soft, normal bowel sounds. EXTREMITIES EXAM: No edema. NEUROLOGICAL EXAM: alert, oriented X 3, no focal deficits. PSYCHIATRIC EXAM: normal affect, normal mood SKIN EXAM: No rash. - Labs CBC & Chem 7: 01/01/21 11:02 01/01/21 11:02 Labs: Abnormal Lab Results - Last 24 Hours (Table) 12/31/20 01/01/21 01/01/21 Range/Units 14:34 11:02 11:02 RBC 4.03 L (4.30-5.90) m/uL Hgb 12.9 L (13.0-17.5) gm/dL Hct 37.4 L (39.0-53.0) % APTT 46.8 H (22.0-30.0) sec Glucose 138 H (74-99) mg/dL 01/01/21 Range/Units 11:02 RBC (4.30-5.90) m/uL Hgb (13.0-17.5) gm/dL Hct (39.0-53.0) % APTT 57.0 H (22.0-30.0) sec Glucose (74-99) mg/dL Microbiology - Last 24 Hours (Table) 12/30/20 15:17 Urine Culture - Preliminary Urine,Voided Gram Neg Bacilli 12/30/20 20:55 Blood Culture - Preliminary Blood No Growth after 24 hours Assessment and Plan Assessment: ASSESSMENT Recurrent unprovoked PE Acute bilateral PE History of DVT and PE in the past Nephrolithiasis with 2.7 cm bladder stone and 8 mm left upper lobe stone UTI with gram-negative organisms BPH Hypertension PLAN: Patient to be continued on ceftriaxone for UTI as the urine culture is positive for gram-negative bacilli. He is to be continued on IV heparin for bilateral PE, to transition to p.o. tomorrow. Patient had history of DVT and PE in the past and another PE currently so would be a candidate for lifelong anticoagulation. Patient will need age-appropriate cancer screening as outpatient. Patient to be continued on the current medication regimen for now. Further recommendations to follow depending on the progress of the patient.
[2021-01-02 07:38] LABS: Basophils % (A) 1 %; Eosinophils # (A) 0.3 k/uL (0-0.7); Eosinophils % (A) 6 %; HCT 39.8 % (39.0-53.0); HGB 13.4 gm/dL (13.0-17.5); Lymphocytes % (A) 17 %; MCH 31.4 pg (25.0-35.0); MCHC 33.6 g/dL (31.0-37.0); MCV 93.4 fL (80.0-100.0); Mean Platelet Volume 7.2; Monocytes # (A) 0.3 k/uL (0-1.0); Monocytes % (A) 6 %; Neutrophils # (A) 4.1 k/uL (1.3-7.7); Neutrophils % (A) 69 %; Platelet Count 179 k/uL (150-450); RBC 4.26 m/uL (4.30-5.90); RDW 13.3 % (11.5-15.5); WBC 5.9 k/uL (3.8-10.6)
[2021-01-02 08:24] LABS: African American GFR (CKD) >90 (>60 ml/min/1.73 sqM); Anion Gap 8 mmol/L; Blood Urea Nitrogen 10 mg/dL (9-20); Calcium 8.6 mg/dL (8.4-10.2); Carbon Dioxide 26 mmol/L (22-30); Chloride 104 mmol/L (98-107); Glucose 134 mg/dL (74-99); Non-African American GFR(CKD) >90 (>60 ml/min/1.73 sqM); Potassium 4.1 mmol/L (3.5-5.1); Sodium 138 mmol/L (137-145)
[2021-01-02] MEDS: CHOLECALCIFEROL 25 MCG (1000 IU) TABLET PO SCH (08:27)
[2021-01-02] MEDS: TAMSULOSIN 0.4 MG CAP.ER.24H PO SCH (08:27)
[2021-01-02] MEDS: ASPIRIN 81 MG PO SCH (08:27)
--- NOTE | 2021-01-02 10:50 | P.PN ---
Subjective Progress Note Date: 01/02/21 01/02/2021, the patient is feeling better. The pain has subsided. He is breathing more comfortable. He is on 2 L of oxygen by nasal cannula and his pulse ox is around 96%. He remains on IV heparin. He remains also on IV fluids with normal saline at the rate of 100 mL an hour. He is tolerating his diet. He is getting food from outside the hospital. Doppler of the lower extremities have been negative. PTT is at 49. Hemoglobin is at 13.4. No other significant events otherwise for now. Objective - Vital Signs Vital signs: Vital Signs Temp 98.1 F 01/02/21 08:00 Pulse 80 01/02/21 08:00 Resp 18 01/02/21 08:00 BP 158/88 01/02/21 08:00 Pulse Ox 96 01/02/21 08:00 Intake & Output 01/01/21 01/02/21 01/02/21 18:59 06:59 18:59 Intake Total 1380.371 241.936 240 Output Total 1315 750 Balance 65.371 -508.064 240 Weight 125.5 kg Intake: Intake, IV Titration 240.371 241.936 Amount Heparin Sod,Pork in 0.45% 240.371 241.936 NaCl 25,000 unit In 0.45 % NaCl 1 250ml.bag @ 18 UNITS/KG/HR 22.534 mls/hr IV .Q11H6M [facility] Rx#: [id number] Oral 1140 240 Output: Urine 1315 750 Other: Voiding Method Urinal Urinal Urinal # Voids 1 - Exam GENERAL EXAM: Alert, a pleasant, 75-year-old white male, on 2 L oxygen pulse ox of 94%comfortable in no apparent distress. HEAD: Normocephalic/atraumatic. EYES: Normal reaction of pupils, equal size. Conjunctiva pink, sclera white. NOSE: Clear with pink turbinates. THROAT: No erythema or exudates. NECK: No masses, no JVD, no thyroid enlargement, no adenopathy. CHEST: No chest wall deformity. Symmetrical expansion. LUNGS: Equal air entry with no crackles diminished breath sounds at the bases, CVS: Regular rate and rhythm, normal S1 and S2, no gallops, no murmurs, no rubs ABDOMEN: Soft, nontender. No hepatosplenomegaly, normal bowel sounds, no guarding or rigidity. EXTREMITIES: No clubbing, no edema, no cyanosis, 2+ pulses and upper and lower extremities. MUSCULOSKELETAL: Muscle strength and tone normal. SPINE: No scoliosis or deformity SKIN: No rashes CENTRAL NERVOUS SYSTEM: Alert and oriented -3. No focal deficits, tone is normal in all 4 extremities. PSYCHIATRIC: Alert and oriented -3. Appropriate affect. Intact judgment and insight. - Labs CBC & Chem 7: 01/02/21 07:19 01/02/21 07:19 Labs: Abnormal Lab Results - Last 24 Hours (Table) 01/01/21 01/01/21 01/01/21 Range/Units 11:02 11:02 11:02 RBC 4.03 L (4.30-5.90) m/uL Hgb 12.9 L (13.0-17.5) gm/dL Hct 37.4 L (39.0-53.0) % APTT 57.0 H (22.0-30.0) sec Glucose 138 H (74-99) mg/dL 01/02/21 01/02/21 01/02/21 Range/Units 07:19 07:19 07:19 RBC 4.26 L (4.30-5.90) m/uL Hgb (13.0-17.5) gm/dL Hct (39.0-53.0) % APTT 49.8 H (22.0-30.0) sec Glucose 134 H (74-99) mg/dL Microbiology - Last 24 Hours (Table) 12/30/20 20:55 Blood Culture - Preliminary Blood No Growth after 48 hours Assessment and Plan Plan: 1 acute bilateral pulmonary embolism, left posterior chest pleurisy/pain in addition to atelectasis noted on the CAT scan of the chest. Nevertheless, the embolism is bilateral and the patient is currently on IV heparin. Clinically improved. Pleurisy is improved. Oxygenation is stable. 2 previous history of pulmonary embolism back in 2018, treated with medical evaluation for a total of 6 months along with a positive family history of pulmonary embolism. 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 Continue IV heparin for now and switch this patient to Eliquis as of tomorrow for long-term and lifelong anticoagulation. Urology to evaluate nephrolithiasis and kidney stones Echocardiography showing no strain pattern Troponins are negative Wean FiO2 as tolerated to maintain a saturation above 90% Stop the IV heparin Switch this patient to Eliquis 10 mg by mouth twice a day Repeat chest x-ray in the morning We'll continue to follow.
[2021-01-02] MEDS: APIXABAN 5 MG TAB PO SCH ×2 (11:09→20:40)
[2021-01-02] MEDS: amLODIPine 5 MG TAB PO SCH (20:40)
[2021-01-02 23:42] VITALS: RESP 18
--- NOTE | 2021-01-03 01:09 | P.PN ---
Subjective Progress Note Date: 01/02/21 Principal diagnosis: Acute Bilateral PE is a 75-year-old male with a past medical history of PE and DVT, prostate disorder, diabetes mellitus admitted for chest pain and difficulty in breathing. Had a CT angio of the chest showing PE and currently all coagulation with IV heparin. On 01/01/2021 -patient is seen and examined at the bedside. Patient denies having any chest pain or difficulty in breathing. No cough or sputum production. No abdominal pain nausea vomiting or diarrhea. No dysuria or hematuria. On reviewing the patient's vitals temperature of 98.5, heart rate 80, respiratory rate 18, blood pressure 173/80, saturating at 94% on 2 L of nasal cannula. On reviewing the labs white count of 6.7, hemoglobin 12.9, platelets 173. Sodium 137, potassium 3.8, chloride 105, bicarb 26, BUN 11, creatinine 0.72. Urinalysis showing positive nitrites and more than 182 WBCs. Urine culture is positive for gram-negative bacilli. On 01/02/2021 -patient is seen and examined at the bedside. No acute events reported by nursing staff overnight. Patient states he has mild right-sided chest discomfort, not associated with any difficulty in breathing. He denies having any palpitations or difficulty in breathing. Patient denies having any dizziness, loss of consciousness or lower extremity swelling. Patient denies having any bleeding. On reviewing his vitals temperature 99.6, heart rate 83, respiratory rate 18, blood pressure 164/65, saturating at 94% on 2 L of oxygen. Reviewing his labs white count of 5.9, hemoglobin 13.4, platelets 179. Sodium 138, potassium 4.1, chloride 104, bicarb 23, BUN 10, creatinine 0.71. Patient medications have been reviewed he is transition from IV heparin to Eliquis. Ceftriaxone for UTI as the urine culture is positive for E. coli. Objective - Vital Signs Vital signs: Vital Signs Temp 97.8 F 01/02/21 11:39 Pulse 84 01/02/21 13:38 Resp 18 01/02/21 13:38 BP 150/81 01/02/21 11:39 Pulse Ox 94 L 01/02/21 11:39 Intake & Output 01/01/21 01/02/21 01/02/21 18:59 06:59 18:59 Intake Total 1380.371 241.936 240 Output Total 1315 750 725 Balance 65.371 -508.064 -485 Weight 125.5 kg Intake: Intake, IV Titration 240.371 241.936 Amount Heparin Sod,Pork in 0.45% 240.371 241.936 NaCl 25,000 unit In 0.45 % NaCl 1 250ml.bag @ 18 UNITS/KG/HR 22.534 mls/hr IV .Q11H6M [facility] Rx#: [id number] Oral 1140 240 Output: Urine 1315 750 725 Other: Voiding Method Urinal Urinal Urinal # Voids 1 2 - Exam PHYSICAL EXAM GEN. APPEARANCE: alert, in no apparent distress HE ENT: No pallor. No icterus. RESPIRATORY EXAM: Bilateral BS ,slightest diminished at the bases, No wheezes or crackles. CARDIOVASCULAR EXAM: S1-S2 heard. No additional sounds. GI/ABDOMINAL EXAM: soft, normal bowel sounds. EXTREMITIES EXAM: No edema. NEUROLOGICAL EXAM: alert, oriented X 3, no focal deficits. PSYCHIATRIC EXAM: normal affect, normal mood SKIN EXAM: No rash. - Labs CBC & Chem 7: 01/02/21 07:19 01/02/21 07:19 Labs: Abnormal Lab Results - Last 24 Hours (Table) 01/02/21 01/02/21 01/02/21 Range/Units 07:19 07:19 07:19 RBC 4.26 L (4.30-5.90) m/uL APTT 49.8 H (22.0-30.0) sec Glucose 134 H (74-99) mg/dL Microbiology - Last 24 Hours (Table) 12/30/20 20:55 Blood Culture - Preliminary Blood No Growth after 48 hours Assessment and Plan Assessment: ASSESSMENT Recurrent unprovoked PE Acute bilateral PE History of DVT and PE in the past Nephrolithiasis with 2.7 cm bladder stone and 8 mm left upper lobe stone UTI withE coli BPH Hypertension PLAN: Patient to be continued on ceftriaxone for UTI as the urine culture is positive for E.coli . His IV heparin transitioned to p.o. Eliquis. Patient had history of DVT and PE in the past and another PE currently so would be a candidate for lifelong anticoagulation. Patient will need age-appropriate cancer screening as outpatient. Patient to be continued on the current medication regimen for now. Further recommendations to follow depending on the progress of the patient.
[2021-01-03] MEDS: SODIUM CHLORIDE 0.9% 1,000 ML IV SCH (04:59)
[2021-01-03] MEDS: ASPIRIN 81 MG PO SCH (07:54)
[2021-01-03] MEDS: CHOLECALCIFEROL 25 MCG (1000 IU) TABLET PO SCH (07:54)
[2021-01-03] MEDS: APIXABAN 5 MG TAB PO SCH (07:54)
[2021-01-03] MEDS: TAMSULOSIN 0.4 MG CAP.ER.24H PO SCH (07:54)
--- NOTE | 2021-01-03 09:07 | XR ---
EXAMINATION TYPE: XR chest 1V DATE OF EXAM: 01/03/2021 COMPARISON: 12/30/2020 HISTORY: Shortness of breath TECHNIQUE: Single frontal view of the chest is obtained. FINDINGS: Left lower lobe infiltrate and small effusion. Arthropathy of the shoulders. Right lung cl ear. Heart size normal. Hypertrophic and degenerative change of the spine. IMPRESSION: Stable left lower lobe infiltrate and small effusion.
[2021-01-03 12:01] VITALS: BP 142/80; PULSE 81; TEMP 98.7
--- NOTE | 2021-01-03 13:11 | P.PN ---
Subjective Progress Note Date: 01/03/21 75-year-old male patient, admitted to the hospital because of pain in the left posterior chest area. He was having also some anterior chest wall pain, pleuritic in nature, worse with deep breathing. The patient also reported a few days ago to have some hematuria, current urine output is clear. He was also having some intermittency with urination but he was voiding completely. This morning, he does not have any further bouts of hematuria. Nevertheless, an investigation was done in the hospital included a CT angiogram of the chest that showed bilateral pulmonary embolism as the patient was found to have multiple bilateral pulmonary emboli involving the right lower lobe and the left lower lobe. In addition to that, there was a left lower lobe atelectasis with a small effusion. Echocardiogram showed preserved LV function and there was no RV strain pattern. Troponins were negative. Patient is currently on IV heparin. D-dimer is at 7.35. PTT is therapeutic. At the same time, the patient underwent a CAT scan of the abdomen and pelvis and the patient was found to have kidney stones including a nonobstructive Gas in the upper lobe of the left kidney measuring 8 mm in size and another 2.7 cm calculus in the bladder. UA was abnormal. The patient was suspected to have a underlying urine checked infection and the patient is currently on IV Rocephin. No significant shortness of breath. No hemodynamic instability. Pulse ox 949 on 2 L of oxygen by nasal cannula. Noted the patient has had previous history of pulmonary embolism. He was diagnosed having PE back in 2018. At that time his pulmonary embolism was unprovoked. He was treated with a coagulation for a total of 6 months and subsequently articulation was stopped. No recent surgery. 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 Nevertheless is quite active. No history of malignancy. He has a daughter also suffers from clotting including DVTs. No hemoptysis. No pleurisy. No stroke. No cardiac arrest. No myocardial infarction. No history of underlying coronary artery disease. He has hypertension and BPH. He is hematuria subsided. on 01/01/2021 patient seen in follow-up care unit, he is awake and alert, oriented 3, he is on 2 L of oxygen pulse ox 94%, overnight he was complaining of pleuritic chest discomfort in the left chest that was worse with deep breathing. He remains on heparin infusion for acute bilateral pulmonary emboli. His echocardiogram has reviewed showing no evidence of right ventricular strain. His vitals have been stable, he denies any hemoptysis, he has received some pain medication for pleuritic chest pain. Remains on Rocephin for urinary tract infection, no significant shortness of breath, no hemodynamic instability overnight, no hemoptysis. On 01/01/2021 patient seen in follow-up on selective care unit. He is awake and alert, in no acute distress, he is currently on room air, pulse ox of 96%. His heparin infusion has been discontinued and the patient was started on oral anticoagulation in the form of Eliquis. Follow-up chest x-ray today showing stable left lower lobe infiltrate and small pleural effusion. Vital signs have been stable, no fever or chills, diminished breath sounds on physical examination, no wheezes or crackles. No altered mentation. Left sided chest pain has improved, he is breathing more comfortably. Lower extremity Dopplers were negative for DVT. Patient remains on antibiotics for urinary tract i nfection, likely on the Rocephin, urine culture showed E. coli. No new labs today. Objective - Vital Signs Vital signs: Vital Signs Temp 98.7 F 01/03/21 12:00 Pulse 81 01/03/21 12:00 Resp 18 01/03/21 12:00 BP 142/80 01/03/21 12:00 Pulse Ox 96 01/03/21 12:00 Intake & Output 01/02/21 01/03/21 01/03/21 18:59 06:59 18:59 Intake Total 600 600 472 Output Total 1475 850 250 Balance -875 -250 222 Weight 124 kg Intake: Intake, IV Titration 600 Amount Sodium Chloride 0.9% 1, 600 000 ml @ 100 mls/hr IV . Q10H [facility] Rx#:[id number] Oral 600 472 Output: Urine 1475 850 250 Other: Voiding Method Urinal Urinal # Voids 2 - Exam GENERAL EXAM: Alert, a pleasant, 75-year-old white male, on air with a pulse ox of 96%, comfortable in no apparent distress. HEAD: Normocephalic/atraumatic. EYES: Normal reaction of pupils, equal size. Conjunctiva pink, sclera white. NOSE: Clear with pink turbinates. THROAT: No erythema or exudates. NECK: No masses, no JVD, no thyroid enlargement, no adenopathy. CHEST: No chest wall deformity. Symmetrical expansion. LUNGS: Equal air entry with no crackles diminished breath sounds at the bases, CVS: Regular rate and rhythm, normal S1 and S2, no gallops, no murmurs, no rubs ABDOMEN: Soft, nontender. No hepatosplenomegaly, normal bowel sounds, no guarding or rigidity. EXTREMITIES: No clubbing, no edema, no cyanosis, 2+ pulses and upper and lower extremities. MUSCULOSKELETAL: Muscle strength and tone normal. SPINE: No scoliosis or deformity SKIN: No rashes CENTRAL NERVOUS SYSTEM: Alert and oriented -3. No focal deficits, tone is normal in all 4 extremities. PSYCHIATRIC: Alert and oriented -3. Appropriate affect. Intact judgment and insight. - Labs CBC & Chem 7: 01/02/21 07:19 01/02/21 07:19 Labs: Microbiology - Last 24 Hours (Table) 12/30/20 20:55 Blood Culture - Preliminary Blood No Growth after 72 hours 12/30/20 15:17 Urine Culture - Final Urine,Voided Escherichia coli Assessment and Plan Plan: 1 acute bilateral pulmonary embolism, left posterior chest pleurisy/pain in addition to atelectasis noted on the CAT scan of the chest. Nevertheless, the embolism is bilateral and the patient was kept on IV heparin for 2 days, and is currently switched to Eliquis 2 previous history of pulmonary embolism back in 2018, treated with medical evaluation for a total of 6 months along with a positive family history of pulmonary embolism. Consider underlying hypercoagulable disease 3 shortness of breath and chest pain secondary to above 4 nephrolithiasis along with a 2.7 cm bladder stone and an 8 mm left upper lobe kidney stone 5 brief hematuria, recovered 6 suspected UTI currently on Rocephin 7 BPH 8 hypertension Plan: Continue oral anticoagulation with Eliquis Patient will need lifelong anticoagulation for recurrent pulmonary embolism, and family history of pulmonary embolism Clinically patient stable, pleuritic chest pain has improved, vital signs have been stable Patient is stable for discharge home from pulmonary perspective Outpatient follow-up with Dr. Diaz in 4-6 weeks Time with Patient: Less than 30
--- NOTE | 2021-01-03 14:04 | P.PN ---
Subjective Progress Note Date: 01/03/21 Principal diagnosis: Recurrent PE, unprovoked In follow-up today patient is tolerating eliquis, started last evening. He denies any bleeding. Objective - Vital Signs Vital signs: Vital Signs Temp 98.7 F 01/03/21 12:00 Pulse 81 01/03/21 12:00 Resp 18 01/03/21 12:00 BP 142/80 01/03/21 12:00 Pulse Ox 96 01/03/21 12:00 Intake & Output 01/02/21 01/03/21 01/03/21 18:59 06:59 18:59 Intake Total 600 600 472 Output Total 1475 850 250 Balance -875 -250 222 Weight 124 kg Intake: Intake, IV Titration 600 Amount Sodium Chloride 0.9% 1, 600 000 ml @ 100 mls/hr IV . Q10H [facility] Rx#:[id number] Oral 600 472 Output: Urine 1475 850 250 Other: Voiding Method Urinal Urinal # Voids 2 - Constitutional General appearance: Present: cooperative, no acute distress, obese - EENT Eyes: Present: anicteric sclerae, EOMI ENT: Present: hearing grossly normal - Respiratory Details: Respirations are even and unlabored - Neurologic Neurologic: Present: CNII-XII intact - Musculoskeletal Musculoskeletal: Present: strength equal bilaterally - Psychiatric Psychiatric: Present: A&O x's 3, appropriate affect, intact judgment & insight - Labs CBC & Chem 7: 01/02/21 07:19 01/02/21 07:19 Labs: Microbiology - Last 24 Hours (Table) 12/30/20 20:55 Blood Culture - Preliminary Blood No Growth after 72 hours 12/30/20 15:17 Urine Culture - Final Urine,Voided Escherichia coli - Imaging and Cardiology Chest x-ray: report reviewed Assessment and Plan (1) Pulmonary embolism Narrative/Plan: Unprovoked, recurrent in bilateral lungs. Patient has been started on Eliquis. Plans for hypercoagulable workup outpatient. We'll get patient appointment for labs and a follow-up with the doctor 3-4 weeks later for results. Discussed this with patient, he verbalized understanding Review bleeding precautions with the patient. Patient understands that he needs to obtain medical alert bracelet identifying that he is on anticoagulation. 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 Reviewed importance of not missing any doses. Current Visit: Yes Status: Acute Priority: High Code(s): I26.99 - OTHER PULMONARY EMBOLISM WITHOUT ACUTE COR PULMONALE SNOMED Code(s): 14829725 (2) Pneumonia Narrative/Plan: Patient does have a left lower lobe pneumonia/small area of atelectasis. Patient has an appointment with Pulmonary. Current Visit: Yes Status: Acute Priority: High Code(s): J18.9 - PNEUMONIA, UNSPECIFIED ORGANISM SNOMED Code(s): 511582982
--- NOTE | 2021-01-03 15:44 | P.DS ---
Providers Date of admission: 12/30/20 18:26 Expected date of discharge: 01/03/21 Attending physician: Sully Mathews MD Consults: 12/30/20 17:04 Consult Physician Urgent Consulting Provider: Montrell Khan Consult Reason/Comments: Infected kidney stone Do you want consulting provider notified?: Already Contacted 12/31/20 00:25 Consult Physician Routine Consulting Provider: [facility] Consult Reason/Comments: pe Do you want consulting provider notified?: Yes, Notify in am 12/31/20 00:26 Consult Physician Routine Consulting Provider: James Diaz Consult Reason/Comments: PE Do you want consulting provider notified?: Yes, Notify in am 12/31/20 16:58 Consult Physician Routine Consulting Provider: Aubrey Orantes Consult Reason/Comments: pe recurrent Do you want consulting provider notified?: Yes Primary care physician: [facility] Patient Condition at Discharge: Stable Plan - Discharge Summary Discharge Rx Participant: No New Discharge Prescriptions: New Apixaban [Eliquis Starter Pack (for VTE)] 5 - 10 mg PO DIRECTED 30 Days #1 each Cefuroxime Axetil [Ceftin] 500 mg PO BID 3 Days #6 tab Continue amLODIPine [Norvasc] 5 mg PO HS Cholecalciferol [Vitamin D3 (25 Mcg = 1000 Iu)] 25 mcg PO DAILY Aspirin EC [Ecotrin Low Dose] 81 mg PO DAILY Tamsulosin [Flomax] 0.4 mg PO DAILY traMADol HCl [Ultram] 50 mg PO TID PRN PRN Reason: Pain Discontinued Sulfamethox-Tmp 800-160Mg [Bactrim DS 800-160 mg] 1 tab PO Q12HR Discharge Medication List Aspirin EC [Ecotrin Low Dose] 81 mg PO DAILY 12/30/20 [History] Cholecalciferol [Vitamin D3 (25 Mcg = 1000 Iu)] 25 mcg PO DAILY 12/30/20 [History] Tamsulosin [Flomax] 0.4 mg PO DAILY 12/30/20 [History] amLODIPine [Norvasc] 5 mg PO HS 12/30/20 [History] traMADol HCl [Ultram] 50 mg PO TID PRN 12/30/20 [History] Apixaban [Eliquis Starter Pack (for VTE)] 5 - 10 mg PO DIRECTED 30 Days #1 each 01/03/21 [Rx] Cefuroxime Axetil [Ceftin] 500 mg PO BID 3 Days #6 tab 01/03/21 [Rx] Follow up Appointment(s)/Referral(s): Seema Stokes MD [STAFF PHYSICIAN] - 01/13/21 9:00 am James Diaz MD [STAFF PHYSICIAN] - 01/27/21 9:45 am [facility]inic [Primary Care Provider] - 01/05/21 10:30 am Patient Instructions/Handouts: Pulmonary Embolism (DC), Heart Healthy Diet (DC) Activity/Diet/Wound Care/Special Instructions: [facility] and [facility] will need [facility] to get Eliquis [facility] through [place]. Discharge Disposition: HOME SELF-CARE
== END 2021-01-03 16:45 | disposition home or self-care (01) | DRG 175 ==
LOC: EC 13:12 → 5NMEDONC 18:26 → 3SCARD 12-31 01:18
PROVIDERS: ADMIT Internal Medicine; ATTEND Internal Medicine
DX: I26.99 Other pulmonary embolism without acute cor pulmonale (principal); J18.9 Pneumonia, unspecified organism; E87.1 Hypo-osmolality and hyponatremia; J98.11 Atelectasis; N10 Acute pyelonephritis; D68.59 Other primary thrombophilia; B96.20 Unspecified Escherichia coli [E. coli] as the cause of diseases classified elsewhere; E11.9 Type 2 diabetes mellitus without complications; I10 Essential (primary) hypertension; I35.8 Other nonrheumatic aortic valve disorders; I45.10 Unspecified right bundle-branch block; N15.9 Renal tubulo-interstitial disease, unspecified; N20.0 Calculus of kidney; N21.0 Calculus in bladder; N40.0 Benign prostatic hyperplasia without lower urinary tract symptoms; Z79.82 Long term (current) use of aspirin; Z79.899 Other long term (current) drug therapy; Z80.3 Family history of malignant neoplasm of breast; Z82.49 Family history of ischemic heart disease and other diseases of the circulatory system; Z86.711 Personal history of pulmonary embolism; Z86.718 Personal history of other venous thrombosis and embolism; Z87.442 Personal history of urinary calculi; N30.91 Cystitis, unspecified with hematuria
CPT/HCPCS: 36415; 71045; 71046; 71275; 74176; 80048; 80053; 81001; 84484; 85025; 85379; 85610; 85730; 87040; 87077; 87086; 87186; 93005; 93306; 93970; 94760; 96361; 96365; 96367; 96375; 99285

== ENCOUNTER → 2021-10-17 | Outpatient (CLI) | payer OTHER, MEDICARE ==
[2021-10-17 14:28] LABS: Basophils # (A) 0.03 X 10*3/uL (0.00-0.10); Basophils % (A) 0.6 %; Eosinophils # (A) 0.17 X 10*3/uL (0.04-0.35); Eosinophils % (A) 3.5 %; HCT 42.9 % (39.6-50.0); HGB 14.2 g/dL (13.0-17.0); Immature Grans, Automated 0.2 %; Lymphocytes # (A) 1.62 X 10*3/uL (0.90-5.00); Lymphocytes % (A) 33.3 %; MCH 30.1 pg (27.0-32.0); MCHC 33.1 g/dL (32.0-37.0); MCV 90.9 fL (80.0-97.0); Monocytes # (A) 0.42 X 10*3/uL (0.20-1.00); Monocytes % (A) 8.6 %; NRBC Per 100 WBC 0 /100 WBCS (0.0-0.0); Neutrophils # (A) 2.62 X 10*3/uL (1.80-7.70); Neutrophils % (A) 53.8 %; Platelet Count 190 X 10*3/uL (140-440); RBC 4.72 X 10*6/uL (4.40-5.60); RDW 12.1 % (11.5-14.5); WBC 4.87 X 10*3/uL (4.50-10.00)
[2021-10-17 14:38] LABS: African American GFR (CKD) 97.9 (60.0-200.0); Anion Gap 8.4 mmol/L (10.00-18.00); BUN/Creat Ratio 11.56 Ratio (12.00-20.00); Blood Urea Nitrogen 10.4 mg/dL (9.0-27.0); Calcium 9.1 mg/dL (8.7-10.3); Carbon Dioxide 25.6 mmol/L (20.0-27.5); Non-African American GFR(CKD) 84.4 (60.0-200.0); Potassium 4.3 mmol/L (3.5-5.5)
[2021-10-17 15:38] LABS: Appearance,Urine Clear (Clear); Bilirubin,Urine Negative (Negative); Blood,Urine Negative (Negative); Color,Urine Yellow (Yellow); Ketones,Urine Negative (Negative); Nitrite,Urine Negative (Negative); PH, Urine 6.5 (5.0-8.0); Specific Gravity,Urine 1.016 (1.001-1.030); Urobilinogen,Urine 0.2 (0.2,1.0)
[2021-10-17 15:45] LABS: Bacteria,Urine None Seen /HPF (None Seen)
== END | disposition home or self-care (01) ==
LOC: LABPAT 09:26
PROVIDERS: ATTEND Urology
DX: Z01.812 Encounter for preprocedural laboratory examination (principal); N21.9 Calculus of lower urinary tract, unspecified; R31.29 Other microscopic hematuria
CPT/HCPCS: 80048; 81001; 85025; 87086

== ENCOUNTER 2021-10-24 05:49 | Day surgery (SDC) | payer MEDICARE, OTHER ==
[2021-10-20 16:00] VITALS: BMI 34.9
[~2021-10-24 05:49] MED LIST: ceFAZolin 3 GM in SODIUM CHLORIDE 0.9% 100 ML IVPB PRN
[2021-10-24 07:00] VITALS: TEMP 97
[2021-10-24] MEDS ORDERED: ONDANSETRON 4 MG/2 ML VIAL ONE (07:10)
[2021-10-24] MEDS ORDERED: IV FLUID CONTINUATION 1,000 ML IV ONE ×2 (07:11)
[2021-10-24 07:14] LABS: Glucose,Whole Blood 130 mg/dL (75-99)
[2021-10-24] MEDS ORDERED: ONDANSETRON 4 MG/2 ML VIAL IVP ONE (07:15)
[2021-10-24] MEDS ORDERED: DEXAMETHASONE SOD PHOSPHATE 4 MG/ML 1 ML VIAL IVP ONE (07:15)
[2021-10-24] MEDS ORDERED: SUCCINYLCHOLINE CHLORIDE VIAL 200 MG/10 ML VIAL IV ONE (07:25)
[2021-10-24] MEDS ORDERED: fentaNYL (PF) 50 MCG/ML 2 ML AMP ONE (07:25)
[2021-10-24] MEDS ORDERED: ROCURONIUM 10 MG/ML (5 ML VIAL) IV ONE (07:25)
[2021-10-24] MEDS ORDERED: LIDOCAINE 2% INJ 20 MG/ML (2 ML VIAL) ONE (07:25)
[2021-10-24] MEDS ORDERED: NEOSTIGMINE 1 MG/ML 10 ML VIAL ONE (07:25)
[2021-10-24] MEDS ORDERED: MIDAZOLAM 2 MG/2 ML VIAL ONE (07:25)
[2021-10-24] MEDS ORDERED: GLYCOPYRROLATE 0.2 MG/ML 2 ML VIAL ONE (07:25)
[2021-10-24] MEDS ORDERED: ePHEDrine 50 MG/ML 1 ML VIAL ONE (07:25)
[2021-10-24] MEDS ORDERED: PROPOFOL 10 MG/ML 20 ML VIAL IV ONE (07:25)
--- NOTE | 2021-10-24 07:34 | P.HPIHPCON ---
History of Present Illness H&P Date: 10/20/21 Chief Complaint: Bladder stone This is a 75 yo male with hx of 2.7 cm bladder stone, he is symptomatic from his stone. Option of cystolitholapaxy was discussed with him. Discussed the risk which includes but not limited to bleeding, infection, bladder perforation. Discussed also risks of anesthesia. Discussed even with stone removal there is a potential persistent bladder symptoms. He understood all the risk and agreed to proceed Consent for Procedure: I have explained the operation/procedure to the patient, including the risks, benefits, side effects, alternative therapies (including not receiving the proposed treatment or service), the likelihood of the patient achieving his/her goals, and potential recuperation problems for the procedure/sedation/analgesia, as well as any blood products, if indicated. I also explained to the patient the risks, benefits and side effects of the alternatives, as well as the risks related to not receiving the proposed procedure, care, treatment, or services. Past Medical History Past Medical History: Diabetes Mellitus, Prostate Disorder Additional Past Medical History / Comment(s): Bilat PE diagnosed 07/30/2017, pt. doesnt check sugar at home, controlled with diet History of Any Multi-Drug Resistant Organisms: None Reported Past Surgical History: Hernia Repair Past Anesthesia/Blood Transfusion Reactions: No Reported Reaction Past Psychological History: No Psychological Hx Reported Smoking Status: Never smoker Past Alcohol Use History: None Reported Past Drug Use History: None Reported - Past Family History Father Family Medical History: Coronary Artery Disease (CAD), Myocardial Infarction (ME) Brother(s) History Unknown: Yes Family Medical History: Coronary Artery Disease (CAD), Myocardial Infarction (ME) Daughter(s) Family Medical History: Deep Vein Thrombosis (DVT) Medications and Allergies Home Medications Medication Instructions Recorded Confirmed Type Cholecalciferol [Vitamin D3 (25 125 mcg PO DAILY 12/30/20 10/24/21 History Mcg = 1000 Iu)] amLODIPine [Norvasc] 5 mg PO HS 12/30/20 10/24/21 History Apixaban [Eliquis Starter Pack 5 mg PO BID 10/20/21 10/24/21 History (for VTE)] Metoprolol Tartrate [Lopressor] 25 mg PO DAILY 10/20/21 10/24/21 History Zinc 50 mg PO DAILY 10/20/21 10/24/21 History Allergies Allergy/AdvReac Type Severity Reaction Status Date / Time No Known Allergies Allergy Verified 10/24/21 06:48 Surgical - Exam - General no distress, no pain - Eyes normal ocular movement, no pale - ENT normal nares, normal mucosa - Respiratory normal expansion, normal respiratory effort - Abdomen Abdomen: soft, non tender Assessment and Plan Assessment: OR for cystolitholapaxy
--- NOTE | 2021-10-24 09:22 | P.OP ---
Date of Procedure: 10/24/21 Preoperative Diagnosis: Bladder stone Postoperative Diagnosis: Same Procedure(s) Performed: Cystolitholapaxy >2.5 cm Implants: None Anesthesia: EVERTONA Surgeon: Montrell Khan Estimated Blood Loss (ml): 25 Pathology: other (Bladder stones) Condition: stable Disposition: PACU Indications for Procedure: This is a 75 yo male with hx of 2.7 cm bladder stone, he is symptomatic from his stone. Option of cystolitholapaxy was discussed with him. Discussed the risk which includes but not limited to bleeding, infection, bladder perforation. Discussed also risks of anesthesia. Discussed even with stone removal there is a potential persistent bladder symptoms. He understood all the risk and agreed to proceed Operative Findings: Large bladder stone otherwise normal bladder Description of Procedure: Patient brought to the operating room, general anesthesia was induced. He was prepped and draped in sterile fashion and placed in dorsal lithotomy position. A cystoscopy fitted with a 21-Samoan sheath was inserted per urethra and was advanced into the bladder. Cystoscopy was performed which showed a large bladder stone, and a moderately trabeculated bladder. There were no bladder masses visualized. 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 Using the holmium laser the stone was fragmented into small fragments, fragments were irrigated out using the cystoscope. Repeat cystoscopy showed no sizable fragments or injury to the bladder. At this time the cystoscope was withdrawn and a 20-Samoan [place] was placed with return of clear urine. The balloon was inflated with 10 mL. Patient tolerated procedure well was taken to recovery in stable condition
[2021-10-24 09:59] VITALS: RESP 20
[2021-10-24 11:10] VITALS: BP 132/80; PULSE 55
== END 2021-10-24 11:09 | disposition home or self-care (01) ==
LOC: OR 05:49
PROVIDERS: ATTEND Urology
DX: N21.0 Calculus in bladder (principal)
CPT/HCPCS: 52318; 82365; C1769; J2250; J0330; J1100; J2710; J0690; J2405; J3010; J2704; J2001